=== PATIENT | female | born 1930 | race Caucasian/White ===

== ENCOUNTER → 2017-02-07 | Outpatient (CLI) | payer MEDICARE, OTHER ==
[~2017-02-07] MED LIST: ADVA250A INH; ADVAI250I PO; CARV6.25 PO; FLUT50SP EACH NARE; FURO1TAB60 PO; FURO20 PO; FURO20TA PO; FURO40TA PO; KCL10C PO; LISI-357 PO; LISI-515 PO; LISI-519 PO; METO25TA3 PO; METO50CR PO; POTA-163 PO; POTA10TA2 PO
[2017-02-07 13:31] LABS: AUTOMATED NEUTROPHIL # 2.5 TH/MM3 (1.8-7.7); BASOPHIL # 0.1 TH/MM3 (0-0.2); BASOPHIL % 3.8 % (0.0-2.0); EOSINOPHIL % 0.9 % (0.0-4.0); HEMATOCRIT 44.2 % (35.0-46.0); LYMPH % 15.3 % (9.0-44.0); LYMPHOCYTE # 0.5 TH/MM3 (1.0-4.8); MEAN CELL VOLUME 97.9 FL (80.0-100.0); MEAN CORPUSCULAR HEMOGLOBIN 31.8 PG (27.0-34.0); MEAN CORPUSCULAR HGB CONC 32.5 % (32.0-36.0); MONO % 10.1 % (0.0-8.0); NEUT % 69.9 % (16.0-70.0); PLATELET COUNT 86 TH/MM3 (150-450); RED BLOOD COUNT 4.51 MIL/MM3 (4.00-5.30); RED CELL DISTRIBUTION WIDTH 14.4 % (11.6-17.2); WHITE BLOOD COUNT 3.6 TH/MM3 (4.0-11.0)
[2017-02-07 13:44] LABS: HEMO FLAGS AUTO DIFF
[2017-02-07 13:58] LABS: ALT (GPT) 22 U/L (10-53); ANION GAP 8 MEQ/L (5-15); AST (GOT) 20 U/L (15-37); BICARBONATE 31.8 MEQ/L (21.0-32.0); BLOOD UREA NITROGEN 31 MG/DL (7-18); CHLORIDE 100 MEQ/L (98-107); GLOMERULAR FILTRATION RATE 47 ML/MIN (>89); GLUCOSE,FASTING 72 MG/DL (74-99); SODIUM (NA) 140 MEQ/L (136-145)
[2017-02-07 14:00] LABS: ALKALINE PHOSPHATASE 54 U/L (45-117); TOTAL BILIRUBIN ADULT 1.1 MG/DL (0.2-1.0)
[2017-02-07 14:31] LABS: PLATELET ESTIMATE SMEAR LOW (NORMAL); PLATELET MORPHOLOGY NORMAL (NORMAL); SCAN/DIFF AUTO DIFF CONFIRMED
== END ==
LOC: PLAB 08-10 10:07
PROVIDERS: ATTEND Family Medicine
DX: R60.0 Localized edema (principal); I42.9 Cardiomyopathy, unspecified; Z51.81 Encounter for therapeutic drug level monitoring
CPT/HCPCS: 36415; 80053; 80061; 83721; 85025

== ENCOUNTER 2017-03-28 11:52 | Emergency (ER) | payer MEDICARE, OTHER ==
[~2017-03-28] VITALS: Ht 162.6 cm; Wt 61.0 kg
[~2017-03-28 11:52] MED LIST changes: -ADVA250A INH; -CARV6.25 PO; -FLUT50SP EACH NARE; -FURO1TAB60 PO; -FURO20TA PO; -FURO40TA PO; -LISI-515 PO; -LISI-519 PO; -METO25TA3 PO; -POTA-163 PO; -POTA10TA2 PO
[2017-03-28 11:58] VITALS: BP 124/65; PULSE 78; RESP 16; TEMP 97.3; O2SAT 97
[2017-03-28] MEDS ORDERED: FURO20TA PO (12:24)
[2017-03-28] MEDS ORDERED: FLUT50SP EACH NARE (12:24)
[2017-03-28] MEDS ORDERED: LISI-515 PO (12:24)
[2017-03-28] MEDS ORDERED: METO25TA3 PO (12:24)
[2017-03-28] MEDS ORDERED: ADVA250A INH (12:24)
[2017-03-28] MEDS ORDERED: POTA10TA2 PO (12:24)
[2017-03-28 12:48] LABS: AUTOMATED NEUTROPHIL # 3.5 TH/MM3 (1.8-7.7); BASOPHIL # 0.1 TH/MM3 (0-0.2); BASOPHIL % 3.2 % (0.0-2.0); LYMPH % 11.6 % (9.0-44.0); LYMPHOCYTE # 0.5 TH/MM3 (1.0-4.8); MEAN CELL VOLUME 98.1 FL (80.0-100.0); MEAN CORPUSCULAR HEMOGLOBIN 32.4 PG (27.0-34.0); MEAN CORPUSCULAR HGB CONC 33.1 % (32.0-36.0); MONO % 8.8 % (0.0-8.0); NEUT % 75.4 % (16.0-70.0); PLATELET COUNT 83 TH/MM3 (150-450); RED BLOOD COUNT 4.29 MIL/MM3 (4.00-5.30); RED CELL DISTRIBUTION WIDTH 14.1 % (11.6-17.2); WHITE BLOOD COUNT 4.5 TH/MM3 (4.0-11.0)
[2017-03-28 12:53] LABS: HEMO FLAGS AUTO DIFF
[2017-03-28 12:58] LABS: POTASSIUM 4.4 MEQ/L (3.5-5.1)
[2017-03-28 13:01] LABS: BICARBONATE 32.3 MEQ/L (21.0-32.0)
--- NOTE | 2017-03-28 13:12 | PD ---
HPI Chief Complaint: Skin Problem Time Seen by Provider: 12:05 Travel History International Travel<30 days: No Contact w/Intl Traveler<30days: No Traveled to known affect area: No History of Present Illness HPI 86 F c/o bilat LE edema for years. She has had drainage from the posterior lower legs for weeks. Dressing changes at [place] have conferred minimal benefit. No fever/chills. No marked pain in the legs. no hx DVT. Drainage has been constant, soaking through dressing daily. Timing constant. PFSH Past Medical History Asthma: No Blood Disorders: No Anxiety: Yes Depression: No Heart Rhythm Problems: No Cancer: Yes (breast) Cardiovascular Problems: Yes (Aortic aneurysm repair, "LEAKY VALVE") High Cholesterol: Yes Chemotherapy: No Chest Pain: No Congestive Heart Failure: Yes COPD: Yes Coronary Artery Disease: Yes Diabetes: No Diminished Hearing: No Endocrine: No Gastrointestinal Disorders: No Genitourinary: No Hypertension: Yes Immune Disorder: No Implanted Vascular Access Dvce: No Musculoskeletal: Yes (FIBROMYALGIA) Neurologic: No Psychiatric: No Reproductive: No Respiratory: Yes (copd) Immunizations Current: Yes Radiation Therapy: Yes Sleep Apnea: No Thyroid Disease: No Past Surgical History Appendectomy: Yes Cardiac Surgery: Yes (STATES AAA REPAIR AT [facility]) Coronary Stent: Yes Gynecologic Surgery: Yes ( LUMPECTOMY) Hysterectomy: Yes Oral Surgery: Yes (TONSILLECTOMY) Tonsillectomy: Yes Other Surgery: Yes (right lumpectomy) Social History Alcohol Use: No Tobacco Use: No Substance Use: No Allergies-Medications (Allergen,Severity, Reaction): Coded Allergies: Sulfa (Verified Allergy, Unknown, LIGHTHEADED, 03/28/17) Reported Meds & Prescriptions Reported Meds & Active Scripts Active Reported Fluticasone Nasal [place] 50 Mcg/Act Naspr 50 Mcg EACH NARE BID 50 mcg/spray Metoprolol Tartrate 25 Mg Tab 25 Mg PO BID Lisinopril 20 Mg Tab 20 Mg PO DAILY Potassium Chloride ER (Potassium Chloride) 10 Meq Tab 10 Meq PO DAILY Furosemide 20 Mg Tab 20 Mg PO DAILY Advair Diskus Inh (Fluticasone-Salmeterol Inh) 250-50 Mcg/Blist Aer 1 Puff INH BID Rinse mouth after use. Review of Systems Except as stated in HPI: all other systems reviewed are Neg Physical Exam Narrative GENERAL: 86 yo F, WNWD, pleasant SKIN: Warm and dry. Generalized erythema from the knees distally bilaterally. Wound dressings are saturated with serous discharge. Minimal foul odor. Posterior R leg has an area of ulceration and minimal bleeding. 2+ DP bilaterally. Varicosities present throughout. HEAD: Atraumatic. Normocephalic. EYES: Pupils equal and round. No scleral icterus. No injection or drainage. ENT: No nasal bleeding or discharge. Mucous membranes pink and moist. NECK: Trachea midline. No JVD. CARDIOVASCULAR: Regular rate and rhythm. RESPIRATORY: No accessory muscle use. Clear to auscultation. Breath sounds equal bilaterally. GASTROINTESTINAL: Abdomen soft, non-tender, nondistended. Hepatic and splenic margins not palpable. MUSCULOSKELETAL: Extremities without clubbing, cyanosis, or edema. No obvious deformities. NEUROLOGICAL: Awake and alert. No obvious cranial nerve deficits. Motor grossly within normal limits. Five out of 5 muscle strength in the arms and legs. Normal speech. PSYCHIATRIC: Appropriate mood and affect; insight and judgment normal. Data Data Last Documented VS Vital Signs Date Time Temp Pulse Resp B/P Pulse Ox O2 Delivery O2 Flow Rate FiO2 03/28/17 11:58 97.3 78 16 124/65 97 VS reviewed Orders Basic Metabolic Panel (Bmp) (03/28/17 12:25) Complete Blood Count With Diff (03/28/17 12:25) Wound Culture And Gram Stain (03/28/17 12:25) Iv Access Insert/Monitor (03/28/17 12:25) Wound Care (03/28/17 12:25) Labs Laboratory Tests Test 03/28/17 12:41 White Blood Count 4.5 TH/MM3 Red Blood Count 4.29 MIL/MM3 Hemoglobin 13.9 GM/DL Hematocrit 42.0 % Mean Corpuscular Volume 98.1 FL Mean Corpuscular Hemoglobin 32.4 PG Mean Corpuscular Hemoglobin 33.1 % Concent Red Cell Distribution Width 14.1 % Platelet Count 83 TH/MM3 Mean Platelet Volume 7.7 FL Neutrophils (%) (Auto) 75.4 % Lymphocytes (%) (Auto) 11.6 % Monocytes (%) (Auto) 8.8 % Eosinophils (%) (Auto) 1.0 % Basophils (%) (Auto) 3.2 % Neutrophils # (Auto) 3.5 TH/MM3 Lymphocytes # (Auto) 0.5 TH/MM3 Monocytes # (Auto) 0.4 TH/MM3 Eosinophils # (Auto) 0.0 TH/MM3 Basophils # (Auto) 0.1 TH/MM3 CBC Comment AUTO DIFF Differential Comment AUTO DIFF CONFIRMED Platelet Estimate LOW Platelet Morphology Comment NORMAL Sodium Level 142 MEQ/L Potassium Level 4.4 MEQ/L Chloride Level 104 MEQ/L Carbon Dioxide Level 32.3 MEQ/L Anion Gap 6 MEQ/L Blood Urea Nitrogen 41 MG/DL Creatinine 1.10 MG/DL Estimat Glomerular Filtration 47 ML/MIN Rate Random Glucose 92 MG/DL Calcium Level 8.8 MG/DL MDM Medical Decision Making Medical Screen Exam Complete: Yes Emergency Medical Condition: Yes Medical Record Reviewed: Yes Differential Diagnosis Venous stasis, cellulitis, lymphedema, necrotizing fasciitis, DVT Narrative Course CBC & BMP Diagram 03/28/17 12:41 No evidence of infection. The patient benefit from Unna's Boots to be applied and replaced every 2 weeks. We have arranged through this with our case management services in coordination with Dr. Dos Santos's service. The visiting nurse will apply the Unna's boots. Patient informed of and is agreeable with plan. Diagnosis Primary Impression: Bilateral lower extremity edema Referrals: Edouard Dos Santos MD 2 days Additional Instructions: You have a choice when it comes to health care, and we are glad that you chose [email or web address]. Hopefully, we have met your expectations on today's visit. You are welcome to return to [email or web address] at any time, as we are committed to meeting the health care needs of our community. Med/Other Pt SpecificInfo: Prescription(s) given Disposition: 01 DISCHARGE HOME Condition: Stable Félix Silveira MD March 28, 2017 13:12
--- NOTE | 2017-03-28 13:13 | PD ---
HPI Chief Complaint: Skin Problem Time Seen by Provider: 12:05 Travel History International Travel<30 days: No Contact w/Intl Traveler<30days: No Traveled to known affect area: No History of Present Illness HPI This report is in ERROR Please disregard this report and all prior copies ! This report is in ERROR Please disregard this report and all prior copies ! This report is in ERROR Please disregard this report and all prior copies ! PFSH Past Medical History Asthma: No Blood Disorders: No Anxiety: Yes Depression: No Heart Rhythm Problems: No Cancer: Yes (breast) Cardiovascular Problems: Yes (Aortic aneurysm repair, "LEAKY VALVE") High Cholesterol: Yes Chemotherapy: No Chest Pain: No Congestive Heart Failure: Yes COPD: Yes Coronary Artery Disease: Yes Diabetes: No Diminished Hearing: No Endocrine: No Gastrointestinal Disorders: No Genitourinary: No Hypertension: Yes Immune Disorder: No Implanted Vascular Access Dvce: No Musculoskeletal: Yes (FIBROMYALGIA) Neurologic: No Psychiatric: No Reproductive: No Respiratory: Yes (copd) Immunizations Current: Yes Radiation Therapy: Yes Sleep Apnea: No Thyroid Disease: No Past Surgical History Appendectomy: Yes Cardiac Surgery: Yes (STATES AAA REPAIR AT [facility]) Coronary Stent: Yes Gynecologic Surgery: Yes ( LUMPECTOMY) Hysterectomy: Yes Oral Surgery: Yes (TONSILLECTOMY) Tonsillectomy: Yes Other Surgery: Yes (right lumpectomy) Social History Alcohol Use: No Tobacco Use: No Substance Use: No Allergies-Medications (Allergen,Severity, Reaction): Coded Allergies: Sulfa (Verified Allergy, Unknown, LIGHTHEADED, 03/28/17) Reported Meds & Prescriptions Reported Meds & Active Scripts Active Reported Fluticasone Nasal [place] 50 Mcg/Act Naspr 50 Mcg EACH NARE BID 50 mcg/spray Metoprolol Tartrate 25 Mg Tab 25 Mg PO BID Lisinopril 20 Mg Tab 20 Mg PO DAILY Potassium Chloride ER (Potassium Chloride) 10 Meq Tab 10 Meq PO DAILY Furosemide 20 Mg Tab 20 Mg PO DAILY Advair Diskus Inh (Fluticasone-Salmeterol Inh) 250-50 Mcg/Blist Aer 1 Puff INH BID Rinse mouth after use. Physical Exam Narrative This report is in ERROR Please disregard this report and all prior copies ! This report is in ERROR Please disregard this report and all prior copies ! This report is in ERROR Please disregard this report and all prior copies ! Data Data Last Documented VS Vital Signs Date Time Temp Pulse Resp B/P Pulse Ox O2 Delivery O2 Flow Rate FiO2 03/28/17 11:58 97.3 78 16 124/65 97 Orders Basic Metabolic Panel (Bmp) (03/28/17 12:25) Complete Blood Count With Diff (03/28/17 12:25) Wound Culture And Gram Stain (03/28/17 12:25) Iv Access Insert/Monitor (03/28/17 12:25) Wound Care (03/28/17 12:25) Labs Laboratory Tests Test 03/28/17 12:41 White Blood Count 4.5 TH/MM3 Red Blood Count 4.29 MIL/MM3 Hemoglobin 13.9 GM/DL Hematocrit 42.0 % Mean Corpuscular Volume 98.1 FL Mean Corpuscular Hemoglobin 32.4 PG Mean Corpuscular Hemoglobin 33.1 % Concent Red Cell Distribution Width 14.1 % Platelet Count 83 TH/MM3 Mean Platelet Volume 7.7 FL Neutrophils (%) (Auto) 75.4 % Lymphocytes (%) (Auto) 11.6 % Monocytes (%) (Auto) 8.8 % Eosinophils (%) (Auto) 1.0 % Basophils (%) (Auto) 3.2 % Neutrophils # (Auto) 3.5 TH/MM3 Lymphocytes # (Auto) 0.5 TH/MM3 Monocytes # (Auto) 0.4 TH/MM3 Eosinophils # (Auto) 0.0 TH/MM3 Basophils # (Auto) 0.1 TH/MM3 CBC Comment AUTO DIFF Differential Comment AUTO DIFF CONFIRMED Platelet Estimate LOW Platelet Morphology Comment NORMAL Sodium Level 142 MEQ/L Potassium Level 4.4 MEQ/L Chloride Level 104 MEQ/L Carbon Dioxide Level 32.3 MEQ/L Anion Gap 6 MEQ/L Blood Urea Nitrogen 41 MG/DL Creatinine 1.10 MG/DL Estimat Glomerular Filtration 47 ML/MIN Rate Random Glucose 92 MG/DL Calcium Level 8.8 MG/DL MDM Medical Decision Making Medical Screen Exam Complete: Yes Emergency Medical Condition: Yes Differential Diagnosis This report is in ERROR Please disregard this report and all prior copies ! This report is in ERROR Please disregard this report and all prior copies ! This report is in ERROR Please disregard this report and all prior copies ! Narrative Course This report is in ERROR Please disregard this report and all prior copies ! This report is in ERROR Please disregard this report and all prior copies ! This report is in ERROR Please disregard this report and all prior copies ! Félix Silveira MD March 28, 2017 13:13
[2017-03-28 13:25] LABS: PLATELET ESTIMATE SMEAR LOW (NORMAL); PLATELET MORPHOLOGY NORMAL (NORMAL); SCAN/DIFF AUTO DIFF CONFIRMED
[2017-04-22] MEDS ORDERED: POTA-163 PO (14:11)
[2017-04-22] MEDS ORDERED: LISI-519 PO (14:13)
== END 2017-03-28 14:18 | disposition home or self-care (01) ==
LOC: PHED 11:52
DX: R60.0 Localized edema (principal); L97.919 Non-pressure chronic ulcer of unspecified part of right lower leg with unspecified severity; I83.91 Asymptomatic varicose veins of right lower extremity; I50.9 Heart failure, unspecified; J44.9 Chronic obstructive pulmonary disease, unspecified; I25.10 Atherosclerotic heart disease of native coronary artery without angina pectoris; I10 Essential (primary) hypertension; M79.7 Fibromyalgia; F41.9 Anxiety disorder, unspecified
CPT/HCPCS: 80048; 85025; 86403; 87070; 87077; 87186; 99283

== ENCOUNTER 2017-04-05 15:33 | Emergency (ER) | payer MEDICARE, OTHER ==
[~2017-04-05] VITALS: Ht 162.6 cm; Wt 64.0 kg
[~2017-04-05 15:33] MED LIST changes: +ADVA250A INH; -ADVAI250I PO; +FLUT50SP EACH NARE; -FURO20 PO; +FURO20TA PO; -KCL10C PO; -LISI-357 PO; +LISI-515 PO; +METO25TA3 PO; -METO50CR PO; +POTA10TA2 PO
[2017-04-05 15:49] VITALS: BP 109/71; PULSE 69; RESP 16; TEMP 97.5; O2SAT 96
--- NOTE | 2017-04-05 16:21 | PD ---
HPI Chief Complaint: Complaint Time Seen by Provider: 16:09 Travel History International Travel<30 days: No Contact w/Intl Traveler<30days: No Traveled to known affect area: No History of Present Illness HPI This is an 86-year-old female who has a history of lower extremity edema and cardiomyopathy who presents to the emergency department with difficulty urinating over the past 48 hours. She says yesterday morning she took her Lasix as she normally does and she only urinated a couple of times and she felt like she was dribbling but she was urinating much less than she normally does. This concerned her so she went to see Dr. Rhodes today. She decided not to take her Lasix this morning. She denies any fevers, chills, abdominal pain, vomiting, urgency or frequency. The patient recently was seen in the emergency department for lower extremity edema and Unna boots were placed and Dr. Rhodes has been trying to diurese her in the outpatient setting. She doesn't feel like her legs are getting any better. PFSH Past Medical History Hx Anticoagulant Therapy: No Asthma: No Blood Disorders: No Anxiety: Yes Depression: No Heart Rhythm Problems: No Cancer: Yes (breast) Cardiovascular Problems: Yes (Aortic aneurysm repair, "LEAKY VALVE") High Cholesterol: Yes Chemotherapy: No Chest Pain: No Congestive Heart Failure: Yes COPD: Yes Coronary Artery Disease: Yes Diabetes: No Diminished Hearing: No Endocrine: No Gastrointestinal Disorders: No Genitourinary: No Hypertension: Yes Immune Disorder: No Implanted Vascular Access Dvce: No Musculoskeletal: Yes (FIBROMYALGIA) Neurologic: No Psychiatric: No Reproductive: No Respiratory: Yes (copd) Immunizations Current: Yes Radiation Therapy: Yes Sleep Apnea: No Thyroid Disease: No Tetanus Vaccination: Unknown Influenza Vaccination: No ?: Not Menopausal: Yes Past Surgical History Appendectomy: Yes Cardiac Surgery: Yes (STATES AAA REPAIR AT [facility]) Coronary Stent: Yes Gynecologic Surgery: Yes ( LUMPECTOMY) Hysterectomy: Yes Oral Surgery: Yes (TONSILLECTOMY) Tonsillectomy: Yes Other Surgery: Yes (right lumpectomy) Social History Alcohol Use: Yes (Occ.) Tobacco Use: No Substance Use: No Allergies-Medications (Allergen,Severity, Reaction): Coded Allergies: Sulfa (Verified Allergy, Unknown, LIGHTHEADED, 04/05/17) Reported Meds & Prescriptions Reported Meds & Active Scripts Active Reported Fluticasone Nasal [place] 50 Mcg/Act Naspr 50 Mcg EACH NARE BID 50 mcg/spray Metoprolol Tartrate 25 Mg Tab 25 Mg PO BID Lisinopril 20 Mg Tab 20 Mg PO DAILY Potassium Chloride ER (Potassium Chloride) 10 Meq Tab 10 Meq PO DAILY Furosemide 20 Mg Tab 20 Mg PO DAILY Advair Diskus Inh (Fluticasone-Salmeterol Inh) 250-50 Mcg/Blist Aer 1 Puff INH BID Rinse mouth after use. Review of Systems Except as stated in HPI: all other systems reviewed are Neg Physical Exam Narrative GENERAL:Well appearing, no acute distress SKIN: Focused skin assessment warm and dry. HEAD: Atraumatic. Normocephalic. EYES: Pupils equal and round. No injection or drainage. ENT: Moist mucous membranes NECK: Trachea midline. CARDIOVASCULAR: Regular rate and rhythm. No murmur appreciated. RESPIRATORY: Clear to auscultation. Breath sounds equal bilaterally. GASTROINTESTINAL: Abdomen soft, non-tender, nondistended. MUSCULOSKELETAL: Unna boots in place on both lower extremities. NEUROLOGICAL: Awake and alert. No obvious cranial nerve deficits. Moving all extremities. PSYCHIATRIC: Appropriate mood and affect; insight and judgment normal. Data Data Last Documented VS Vital Signs Date Time Temp Pulse Resp B/P Pulse Ox O2 Delivery O2 Flow Rate FiO2 04/05/17 15:49 97.5 69 16 109/71 96 Orders Complete Blood Count With Diff (04/05/17 16:16) Comprehensive Metabolic Panel (04/05/17 16:16) ^ Insert Iv (04/05/17 16:16) B-Type Natriuretic Peptide (04/05/17 16:16) Urinalysis - C+S If Indicated (04/05/17 16:16) Labs Laboratory Tests Test 04/05/17 16:30 White Blood Count 5.0 TH/MM3 Red Blood Count 4.89 MIL/MM3 Hemoglobin 15.4 GM/DL Hematocrit 48.2 % Mean Corpuscular Volume 98.4 FL Mean Corpuscular Hemoglobin 31.5 PG Mean Corpuscular Hemoglobin 32.0 % Concent Red Cell Distribution Width 15.0 % Platelet Count 100 TH/MM3 Mean Platelet Volume 8.2 FL Neutrophils (%) (Auto) 79.1 % Lymphocytes (%) (Auto) 12.1 % Monocytes (%) (Auto) 6.7 % Eosinophils (%) (Auto) 0.5 % Basophils (%) (Auto) 1.6 % Neutrophils # (Auto) 4.0 TH/MM3 Lymphocytes # (Auto) 0.6 TH/MM3 Monocytes # (Auto) 0.3 TH/MM3 Eosinophils # (Auto) 0.0 TH/MM3 Basophils # (Auto) 0.1 TH/MM3 CBC Comment AUTO DIFF Urine Color YELLOW Urine Turbidity CLEAR Urine pH 5.5 Urine Specific [place] 1.020 Urine Protein 30 mg/dL Urine Glucose (UA) NEG mg/dL Urine Ketones NEG mg/dL Urine Occult Blood MOD Urine Nitrite NEG Urine Bilirubin NEG Urine Leukocyte Esterase NEG Urine RBC 0-3 /hpf Urine WBC 3-5 /hpf Urine Squamous Epithelial 0-5 /hpf Cells Urine Mucus MOD /lpf Microscopic Urinalysis Comment CULT NOT INDICATED Sodium Level 140 MEQ/L Potassium Level 4.4 MEQ/L Chloride Level 102 MEQ/L Carbon Dioxide Level 28.7 MEQ/L Anion Gap 9 MEQ/L Blood Urea Nitrogen 37 MG/DL Creatinine 1.10 MG/DL Estimat Glomerular Filtration 47 ML/MIN Rate Random Glucose 80 MG/DL Calcium Level 8.7 MG/DL Total Bilirubin 0.9 MG/DL Aspartate Amino Transf 23 U/L (AST/SGOT) Alanine Aminotransferase 21 U/L (ALT/SGPT) Alkaline Phosphatase 60 U/L B-Type Natriuretic Peptide 4551 PG/ML Total Protein 6.2 GM/DL Albumin 3.1 GM/DL MDM Medical Decision Making Medical Screen Exam Complete: Yes Emergency Medical Condition: Yes Interpretation(s) Afebrile, no tachycardia, normotensive No leukocytosis Creatinine is similar to prior BNP is elevated as it's been in the past Urinalysis is negative for infection Differential Diagnosis Urinary tract infection, acute urinary retention, renal failure Narrative Course This is an 86-year-old female who presents to the emergency department with decreased urine output over the past 48 hours. She has no evidence of urinary retention and place void residual was 10 cc. Labs are reassuring with creatinine at her baseline. Urinalysis is negative for infection. I don't see any indication for the patient to be admitted to the hospital. Patient will be discharged home and can follow-up with Dr. Rhodes in clinic. Diagnosis Primary Impression: Urinary hesitancy Patient Instructions: General Instructions Additional Instructions: If you develop severe chest pain, shortness of breath, sweating, lightheadedness , dizziness or difficulty breathing return to the emergency department immediately. Followup with your primary care physician in 2-3 days if your symptoms are not resolved. Med/Other Pt SpecificInfo: No Change to Meds Disposition: 01 DISCHARGE HOME Condition: Stable Marly Rivera MD April 05, 2017 16:21
[2017-04-05 16:51] LABS: GLUCOSE,URINE NEG (NEG); KETONE, URINE NEG (NEG); NITRITE,URINE NEG (NEG); PH, URINE 5.5 (5.0-8.5)
[2017-04-05 16:55] LABS: CHLORIDE 102 MEQ/L (98-107); POTASSIUM 4.4 MEQ/L (3.5-5.1); SODIUM (NA) 140 MEQ/L (136-145)
[2017-04-05 16:59] LABS: ANION GAP 9 MEQ/L (5-15); BICARBONATE 28.7 MEQ/L (21.0-32.0); BLOOD UREA NITROGEN 37 MG/DL (7-18)
[2017-04-05 17:00] LABS: BLOOD, URINE MOD (NEG); URINE COLOR YELLOW (YELLW/STRAW)
[2017-04-05 17:01] LABS: MUCUS URINE MOD /lpf (OCC)
[2017-04-05 17:02] LABS: ALT (GPT) 21 U/L (10-53); AST (GOT) 23 U/L (15-37); COMMENT (UR) CULT NOT INDICATED; CULTURE IF INDICATED CULT NOT INDICATED; GLOMERULAR FILTRATION RATE 47 ML/MIN (>89); RBC, URINE 0-3 /hpf (0-3); SQUAMOUS EPITHELIAL CELL URINE 0-5 /hpf (0-5)
[2017-04-05 17:04] LABS: BASOPHIL # 0.1 TH/MM3 (0-0.2); BASOPHIL % 1.6 % (0.0-2.0); EOSINOPHIL % 0.5 % (0.0-4.0); HEMATOCRIT 48.2 % (35.0-46.0); LYMPH % 12.1 % (9.0-44.0); LYMPHOCYTE # 0.6 TH/MM3 (1.0-4.8); MEAN CELL VOLUME 98.4 FL (80.0-100.0); MEAN CORPUSCULAR HEMOGLOBIN 31.5 PG (27.0-34.0); MONO % 6.7 % (0.0-8.0); NEUT % 79.1 % (16.0-70.0); PLATELET COUNT 100 TH/MM3 (150-450); RED BLOOD COUNT 4.89 MIL/MM3 (4.00-5.30); TOTAL BILIRUBIN ADULT 0.9 MG/DL (0.2-1.0)
[2017-04-05 17:05] LABS: ALKALINE PHOSPHATASE 60 U/L (45-117)
[2017-04-05 17:15] LABS: HEMO FLAGS AUTO DIFF
[2017-04-05] MEDS ORDERED: FUROSEMIDE 20 MG/2 ML VIAL IV PUSH ONE (18:00)
[2017-04-05 18:20] VITALS: BP 130/89; PULSE 88; RESP 16; O2SAT 95
[2017-04-05 18:46] LABS: SCAN/DIFF AUTO DIFF CONFIRMED
== END 2017-04-05 18:30 | disposition home or self-care (01) ==
LOC: PHED 15:33
DX: R39.11 Hesitancy of micturition (principal); F41.9 Anxiety disorder, unspecified; E78.00 Pure hypercholesterolemia, unspecified; I50.9 Heart failure, unspecified; J44.9 Chronic obstructive pulmonary disease, unspecified; I25.10 Atherosclerotic heart disease of native coronary artery without angina pectoris; I10 Essential (primary) hypertension; M79.7 Fibromyalgia; Z79.899 Other long term (current) drug therapy
CPT/HCPCS: 51702; 80053; 81001; 83880; 85025; 96374; 99284; J1940

== ENCOUNTER 2017-04-22 10:39 | Observation (INO) | payer MEDICARE, OTHER ==
[~2017-04-22] VITALS: Ht 162.6 cm; Wt 61.1 kg
[2017-04-22 13:40] VITALS: BP 124/71; PULSE 91; RESP 20; TEMP 97.4; O2SAT 90
[2017-04-22] MEDS ORDERED: POTA-163 PO ×2 (14:11)
[2017-04-22] MEDS ORDERED: LISI-519 PO ×2 (14:13)
[2017-04-22] MEDS ORDERED: METO25TA3 PO (14:23)
[2017-04-22] MEDS ORDERED: FURO40TA PO (14:25)
--- NOTE | 2017-04-22 15:09 | HHI.HP ---
[facility] Edouard Dos Santos MD Admission Diagnosis Diagnoses: Chief Complaint: Direct admit by cardiology due to worsening CHF Travel History International Travel<30 Days: No Contact w/Intl Traveler <30 Da: No History of Present Illness 86 years old female with history of advanced CHF and stage I breast cancer diagnosed in 2005, coronary artery disease, chronic lower extremity edema and wound, osteopenia osteoporosis, thoracic aneurysm transferred directly to the hospital as a direct admit. I received a call this morning from Dr. francis the process consultant requesting direct admit due to possible worsening CHF. Patient seen in the room she was laying in bed on oxygen nasal cannula she seems to be stable on oxygen. She told me she is on oxygen at home but only at night however within the last 2 days her dyspnea become more progressive and worsening she can do further movement without getting short of breath, no chest pain fever or chills, no abdominal pain diarrhea constipation dysuria urgency frequency Review of Systems All systems reviewed and was positive for what is mentioned in history of present illness otherwise negative Past Family Social History Past Medical History As in history of present illness Past Surgical History Appendectomy, hysterectomy, thoracic aneurysm repair, tonsillectomy, lumpectomy in 2005 Allergies: Coded Allergies: Sulfa (Verified Allergy, Unknown, LIGHTHEADED, 04/05/17) Family History Not aware of significant family medical problem Social History Denied tobacco alcohol or illicit drug abuse Physical Exam Physical Exam GENERAL: This is a well-nourished, well-developed patient, in no apparent distress. SKIN: No rashes, warm and dry HEAD: Atraumatic. Normocephalic. EYES: Pupils equal round and reactive. Extraocular motions intact. No scleral icterus. ENT: Nose without bleeding, or drainage, Airway patent. NECK: Trachea midline. Supple CARDIOVASCULAR: Regular rate and rhythm without murmurs, gallops, or rubs. RESPIRATORY: Fair air entry bilaterally. No wheezes, rales, or rhonchi. GASTROINTESTINAL: Abdomen soft, non-tender, nondistended. Positive bowel sounds MUSCULOSKELETAL: Extremities without clubbing, cyanosis, or edema. Pedal pulses appreciated NEUROLOGICAL: Awake and alert. Moves all extremity. Normal speech.no focal neurological deficit Laboratory No lab available yet I ordered basic lab BMP, BNP, CBC Imaging Last Impressions Chest X-Ray 04/22/17 0000 Signed Impressions: Service Date/Time: Saturday, April 22, 2017 15:20 - CONCLUSION: 1. Massive cardiomegaly. 2. Thoracic stent graft. 3. No overt congestive failure. 4. Surgical clips in the right axilla. Jeffery Sue MD FACR Assessment and Plan Assessment and Plan 86 years old female with history of advanced CHF and valvulopathy, breast cancer admitted directly to hospitalist service per request of her process consultant Hypoxia and increased need of oxygen dyspnea on exertion Rule out CHF exacerbation CBC BMP, BNP, chest x-ray We'll give a dose of Lasix 40 mg iv Consulted cardiology and discussed with Dr. francis O2 to keep O2 sat above 92% 2-D echo from June 2016 showed EF 20-25%, severe MR , AR, severely dilated left at p.m., and pulmonary pressure is 44 mmgh, will defer repeating 2-D echo for process consultant History of COPD per previous record: Patient denied history of smoking Continue O2, we'll provide DuoNeb No significant wheezes H/O Hypertension A pressure controlled now we'll monitor, Vasotec as needed Lower extremity wound and edema She came with wrap compression, I removed it and inspected the left leg there was some bleeding wound we consulted wound care, I recommended to decrease libido pressure on the leg and rewrap it Awaiting wound care recommendation Prophylaxis with SCD and heparin Addendum: 651 Lab reviewed by me, BNP above 5000, creatinine 1.22 comparing to 1.10 last month , will continue on Lasix iv, awaiting cardiology consultation Mckenzie Weldon MD Apr 22, 2017 15:09
[2017-04-22] MEDS ORDERED: NALOXONE HCL 0.4 MG/ML AMP IV PRN (15:15)
[2017-04-22] MEDS ORDERED: ACETAMINOPHEN 325 MG TAB PO PRN (15:15)
[2017-04-22] MEDS ORDERED: SODIUM CHLORIDE 0.9% FLUSH 10 ML FLUSH IV FLUSH PRN (15:15)
[2017-04-22] MEDS ORDERED: MAGNESIUM HYDROXIDE SUSP 30 ML CUP PO PRN (15:15)
[2017-04-22] MEDS ORDERED: ONDANSETRON HCL 4 MG/2 ML VIAL IVP PRN (15:15)
[2017-04-22 16:00] VITALS: BP 120/87; PULSE 98; RESP 20; TEMP 97.3; O2SAT 98
--- NOTE | 2017-04-22 16:09 | RADRPT ---
EXAM DATE/TIME: 04/22/2017 15:20 [place] COMPARISON: CHEST SINGLE AP, August 29, 2016, 10:58. INDICATIONS : Pleural effusion. MEDICAL HISTORY : Chronic obstructive pulmonary disease. Congestive heart failure. Myocardial infarction. SURGICAL HISTORY : Abdominal aortic aneurysm ENCOUNTER: Initial ACUITY: 1 day PAIN SCORE: 0/10 LOCATION: Bilateral chest FINDINGS: Thoracic stent graft is present. The heart is enlarged. Minimal bibasilar parenchymal changes are n oted. There is no significant pleural effusion or consolidation. CONCLUSION: 1. Massive cardiomegaly. 2. Thoracic stent graft. 3. No overt congestive failure. 4. Surgical clips in the right axilla. Jeffery Sue MD FACR on April 22, 2017 at 16:06 Board Certified Radiologist. This report was verified electronically.
[2017-04-22] MEDS: FUROSEMIDE 40 MG/4 ML VIAL IVP SCH (17:07)
[2017-04-22] MEDS: HEPARIN SODIUM - SQ 10,000 UNITS/ML VIAL SQ SCH ×2 (17:07→23:33)
--- NOTE | 2017-04-22 17:32 | MB ---
cc: KENISHA FIERRO MD DATE OF CONSULTATION 04/22/17 HISTORY OF PRESENT ILLNESS An 86-year-old white female known to my practice with a history of nonischemic cardiomyopathy, an ejection fraction of 20-25%. She has had increased shortness of breath and lower extremity edema which was difficult to manage as outpatient. She also has had wounds of the lower extremities related to severe edema. She has not had any chest pain. She is admitted for the management of her congestive heart failure. PAST MEDICAL HISTORY 1. Nonischemic cardiomyopathy, PET scan on 04/28/2016 negative for ischemia. Echocardiogram on 06/30/2016 with ejection fraction of 20-25%. 2. History of intervention for thoracic aortic aneurysm, 3. Osteoporosis, 4. Breast cancer 5. Insomnia 6. Thoracic aortic aneurysm repair in 2016. 7. Last cardiac cath in 05/2011 with 20-30% stenosis of the RCA and an ejection fraction of 25% 8. Appendectomy 9. Hysterectomy 10. Lumpectomy MEDICATIONS 1. Metoprolol, 2. Lasix, 3. Klor-Con 4. Lisinopril 5. Fluticasone 6. Advair Discus SOCIAL HISTORY The patient does not smoke. She drinks alcohol socially. FAMILY HISTORY Positive for heart disease in mother, father and sibling. REVIEW OF SYSTEMS Otherwise negative. PHYSICAL EXAMINATION VITAL SIGNS: Blood pressure 102/60, pulse 95 and regular. HEENT: Negative. 2+ carotid upstrokes, no bruits. LUNGS: Clear. HEART: Irregular with 2/6 systolic and diastolic murmur, no gallop or rub. ABDOMEN: Soft, no bruits. EXTREMITIES: 2-3+ edema. There are wounds of both lower extremities. 1+ distal pulses. NEUROLOGIC: Grossly nonfocal. CARDIOLOGY STUDIES EKG was reviewed and showed sinus rhythm with frequent PVCs, left axis, left anterior fascicular block, delayed R-wave progression over precordial leads. The last echocardiogram in November of 2016 showed severe left ventricular dysfunction, moderate to severe aortic insufficiency, severe mitral insufficiency, moderate pulmonary hypertension and moderate tricuspid regurgitation. DIAGNOSES 1. Acute exacerbation of chronic systolic congestive heart failure. 2. Nonischemic cardiomyopathy with severe left ventricular systolic dysfunction. 4. Lower extremity edema. 5. Lower extremity wounds. 6. Coronary artery disease, mild 7. Moderate to severe aortic insufficiency. 8. Severe mitral regurgitation 9. Moderate pulmonary hypertension 10. Moderate tricuspid regurgitation. DISPOSITION Ms. David will be monitored on telemetry. We will initiate IV diuresis closely monitoring her renal function. We will continue other therapies for congestive heart failure. We will closely monitor her electrolytes. We will consult wound care service for the evaluation of her lower extremity wounds. I will follow her for cardiology during her hospitalization. MD TRACEY Reynolds/ /4:40 PM /5:16 PM CHAKA
[2017-04-22] MEDS ORDERED: RESP: ALBUTEROL 2.5 MG/IPRATROPIUM 0.5 MG NEB (PRN) NEB (17:45)
[2017-04-22] MEDS ORDERED: ENALAPRILAT 1.25 MG/ML VIAL IV PUSH PRN (17:45)
[2017-04-22 17:52] LABS: AUTOMATED NEUTROPHIL # 2.9 TH/MM3 (1.8-7.7); BASOPHIL % 0.8 % (0.0-2.0); EOSINOPHIL % 0.3 % (0.0-4.0); HEMATOCRIT 43.5 % (35.0-46.0); LYMPH % 16.9 % (9.0-44.0); LYMPHOCYTE # 0.7 TH/MM3 (1.0-4.8); MEAN CELL VOLUME 99.3 FL (80.0-100.0); MEAN CORPUSCULAR HEMOGLOBIN 31.7 PG (27.0-34.0); MEAN CORPUSCULAR HGB CONC 31.9 % (32.0-36.0); MONO % 9.1 % (0.0-8.0); NEUT % 72.9 % (16.0-70.0); PLATELET COUNT 62 TH/MM3 (150-450); RED BLOOD COUNT 4.38 MIL/MM3 (4.00-5.30); RED CELL DISTRIBUTION WIDTH 15.3 % (11.6-17.2); WHITE BLOOD COUNT 3.9 TH/MM3 (4.0-11.0)
[2017-04-22 18:03] LABS: HEMO FLAGS AUTO DIFF
[2017-04-22 18:15] LABS: BICARBONATE 34.5 MEQ/L (21.0-32.0); MAGNESIUM 2.7 MG/DL (1.5-2.5); POTASSIUM 4.6 MEQ/L (3.5-5.1)
[2017-04-22 18:53] LABS: PLATELET ESTIMATE SMEAR LOW (NORMAL); PLATELET MORPHOLOGY NORMAL (NORMAL); SCAN/DIFF AUTO DIFF CONFIRMED
[2017-04-22 19:45] VITALS: PULSE 81
[2017-04-22 20:00] VITALS: BP 118/67; PULSE 115; RESP 18; TEMP 97.5; O2SAT 92
[2017-04-22] MEDS: SODIUM CHLORIDE 0.9% FLUSH 10 ML FLUSH IV FLUSH SCH (20:33)
[2017-04-22] MEDS: DOCUSATE SODIUM 50 MG/SENNA 8.6 MG TAB PO SCH (20:33)
[2017-04-22 20:36] VITALS: O2SAT 97
[2017-04-22] MEDS: RESP: ALBUTEROL 2.5 MG/IPRATROPIUM 0.5 MG NEB (SCH) NEB (20:36)
--- NOTE | 2017-04-22 20:39 | PD.WCN.NOT ---
Wound Consult Description: Wound Care consulted for Wound Management of lower extremities per Dr Weldon. Communicated with: ROB Hernandez Recommendation: Every 5 days and PRN for saturation or dislodgement: Apply Optifoam AG to bilateral lower extremity wounds and secure with rolled gauze. Additional Information: Dr Weldon notified of recommendations. Shelbie Coulter [facility] Apr 22, 2017 20:39
[2017-04-22 23:57] LABS: BACTERIA, URINE RARE /hpf; BLOOD, URINE TRACE (NEG); COMMENT (UR) CULT NOT INDICATED; CULTURE IF INDICATED CULT NOT INDICATED; GLUCOSE,URINE NEG (NEG); HYALINE CAST, URINE 17 /lpf (RARE); KETONE, URINE NEG (NEG); NITRITE,URINE NEG (NEG); SQUAMOUS EPITHELIAL CELL URINE <1 /hpf (0-5); URINE COLOR YELLOW (YELLW/STRAW)
[2017-04-23] VITALS (7 sets, daily range): BP systolic 91–143; BP diastolic 62–80; PULSE 76–97; RESP 18–24; TEMP 97.1–97.8; O2SAT 94–97
[2017-04-23] MEDS: RESP: ALBUTEROL 2.5 MG/IPRATROPIUM 0.5 MG NEB (SCH) NEB ×4 (08:22→19:42)
[2017-04-23 09:27] LABS: AUTOMATED NEUTROPHIL # 2.2 TH/MM3 (1.8-7.7); BASOPHIL % 0.9 % (0.0-2.0); HEMATOCRIT 42.6 % (35.0-46.0); LYMPH % 20.8 % (9.0-44.0); LYMPHOCYTE # 0.7 TH/MM3 (1.0-4.8); MEAN CELL VOLUME 98.7 FL (80.0-100.0); MEAN CORPUSCULAR HEMOGLOBIN 32.7 PG (27.0-34.0); MEAN CORPUSCULAR HGB CONC 33.1 % (32.0-36.0); MONO % 9.6 % (0.0-8.0); NEUT % 67.7 % (16.0-70.0); PLATELET COUNT 72 TH/MM3 (150-450); RED BLOOD COUNT 4.31 MIL/MM3 (4.00-5.30); RED CELL DISTRIBUTION WIDTH 15.6 % (11.6-17.2); WHITE BLOOD COUNT 3.3 TH/MM3 (4.0-11.0)
[2017-04-23] MEDS: DOCUSATE SODIUM 50 MG/SENNA 8.6 MG TAB PO SCH ×2 (09:30→22:06)
[2017-04-23] MEDS: SODIUM CHLORIDE 0.9% FLUSH 10 ML FLUSH IV FLUSH SCH ×2 (09:31→22:07)
[2017-04-23] MEDS: HEPARIN SODIUM - SQ 10,000 UNITS/ML VIAL SQ SCH ×2 (09:31→16:23)
[2017-04-23] MEDS: FUROSEMIDE 40 MG/4 ML VIAL IVP SCH ×2 (09:31→18:03)
[2017-04-23 09:50] LABS: HEMO FLAGS AUTO DIFF
[2017-04-23 09:55] LABS: BICARBONATE 29.4 MEQ/L (21.0-32.0); POTASSIUM 4.3 MEQ/L (3.5-5.1)
[2017-04-23 11:13] LABS: OVALOCYTES 1+ (NORMAL); PLATELET ESTIMATE SMEAR LOW (NORMAL); PLATELET MORPHOLOGY NORMAL (NORMAL)
[2017-04-23 11:14] LABS: SCAN/DIFF AUTO DIFF CONFIRMED
--- NOTE | 2017-04-23 15:52 | PD.CARD.PN ---
Subjective Subjective Remarks No CP, minimal SOB, still w LE edema, not diuresing well yet Objective Medications Current Medications Medications (Trade) Dose Ordered Sig/Duncan Route Start Time Stop Time Status Last Admin (NS Flush) 2 ml UNSCH PRN IV FLUSH 04/22/17 15:15 (NS Flush) 2 ml BID IV FLUSH 04/22/17 21:00 04/23/17 09:31 (Tylenol) 650 mg Q4H PRN PO 04/22/17 15:15 (Zofran Inj) 4 mg Q6H PRN IVP 04/22/17 15:15 (Heparin Inj) 5,000 units Q8H SQ 04/22/17 16:00 04/23/17 09:31 (Narcan Inj) 0.4 mg UNSCH PRN IV 04/22/17 15:15 (Naya-Colace) 1 tab BID PO 04/22/17 21:00 04/23/17 09:30 (Milk Of Magnesia Liq) 30 ml Q12H PRN PO 04/22/17 15:15 (Lasix Inj) 40 mg BID@,18 IVP 04/22/17 18:00 04/23/17 09:31 (Vasotec Inj) 1.25 mg Q6H PRN IV PUSH 04/22/17 17:45 Vital Signs / I&O Vital Signs Date Time Temp Pulse Resp B/P Pulse Ox O2 Delivery O2 Flow Rate FiO2 04/23/17 15:28 95 Nasal Cannula 2.00 04/23/17 12:00 97.1 76 24 113/65 96 04/23/17 08:23 96 Nasal Cannula 2.00 04/23/17 08:00 97.1 97 24 120/80 97 04/23/17 00:00 97.6 94 18 110/75 96 04/22/17 20:36 97 Nasal Cannula 2.00 04/22/17 20:00 97.5 115 18 118/67 92 04/22/17 19:45 81 04/22/17 16:00 97.3 98 20 120/87 98 I/O 04/22/17 04/22/17 04/22/17 04/23/17 04/23/17 04/23/17 07:00 15:00 23:00 07:00 15:00 23:00 Intake Total 222 ml 100 ml Output Total 200 ml 300 ml Balance 22 ml -200 ml Intake Oral 220 ml 100 ml IV Total 2 ml Output Urine Total 200 ml 300 ml # Voids 1 # Bowel Movements 0 0 0 Physical Exam GENERAL: In NAD, on O2 SKIN: Warm and dry. HEAD: Normocephalic. EYES: No scleral icterus. No injection or drainage. NECK: Supple, trachea midline. No JVD or lymphadenopathy. CARDIOVASCULAR: Regular rate and rhythm with 2/6 syst and diast murmurs, S3 gallop. RESPIRATORY: Breath sounds equal bilaterally. No accessory muscle use. GASTROINTESTINAL: Abdomen soft, non-tender, nondistended. MUSCULOSKELETAL: No cyanosis, 2-3+ LE edema, LE wounds. Laboratory Laboratory Tests Test 04/22/17 04/22/17 04/23/17 17:22 23:20 07:21 White Blood Count 3.9 TH/MM3 3.3 TH/MM3 Red Blood Count 4.38 MIL/MM3 4.31 MIL/MM3 Hemoglobin 13.9 GM/DL 14.1 GM/DL Hematocrit 43.5 % 42.6 % Mean Corpuscular Volume 99.3 FL 98.7 FL Mean Corpuscular Hemoglobin 31.7 PG 32.7 PG Mean Corpuscular Hemoglobin 31.9 % 33.1 % Concent Red Cell Distribution Width 15.3 % 15.6 % Platelet Count 62 TH/MM3 72 TH/MM3 Mean Platelet Volume 9.2 FL 9.2 FL Neutrophils (%) (Auto) 72.9 % 67.7 % Lymphocytes (%) (Auto) 16.9 % 20.8 % Monocytes (%) (Auto) 9.1 % 9.6 % Eosinophils (%) (Auto) 0.3 % 1.0 % Basophils (%) (Auto) 0.8 % 0.9 % Neutrophils # (Auto) 2.9 TH/MM3 2.2 TH/MM3 Lymphocytes # (Auto) 0.7 TH/MM3 0.7 TH/MM3 Monocytes # (Auto) 0.4 TH/MM3 0.3 TH/MM3 Eosinophils # (Auto) 0.0 TH/MM3 0.0 TH/MM3 Basophils # (Auto) 0.0 TH/MM3 0.0 TH/MM3 CBC Comment AUTO DIFF AUTO DIFF Differential Comment AUTO DIFF AUTO DIFF CONFIRMED CONFIRMED Platelet Estimate LOW LOW Platelet Morphology Comment NORMAL NORMAL Sodium Level 145 MEQ/L 145 MEQ/L Potassium Level 4.6 MEQ/L 4.3 MEQ/L Chloride Level 105 MEQ/L 105 MEQ/L Carbon Dioxide Level 34.5 MEQ/L 29.4 MEQ/L Anion Gap 6 MEQ/L 11 MEQ/L Blood Urea Nitrogen 40 MG/DL 42 MG/DL Creatinine 1.22 MG/DL 1.22 MG/DL Estimat Glomerular Filtration 42 ML/MIN 42 ML/MIN Rate Random Glucose 84 MG/DL 72 MG/DL Calcium Level 8.7 MG/DL 8.5 MG/DL Phosphorus Level 4.0 MG/DL Magnesium Level 2.7 MG/DL B-Type Natriuretic Peptide GREATER THAN GREATER THAN 5000 PG/ML 5000 PG/ML Urine Color YELLOW Urine Turbidity CLEAR Urine pH 5.0 Urine Specific [place] 1.009 Urine Protein NEG mg/dL Urine Glucose (UA) NEG mg/dL Urine Ketones NEG mg/dL Urine Occult Blood TRACE Urine Nitrite NEG Urine Bilirubin NEG Urine Urobilinogen LESS THAN 2.0 MG/DL Urine Leukocyte Esterase NEG Urine RBC 1 /hpf Urine WBC 1 /hpf Urine Squamous Epithelial <1 /hpf Cells Urine Bacteria RARE /hpf Urine Hyaline Casts 17 /lpf Microscopic Urinalysis Comment CULT NOT INDICATED Ovalocytes 1+ Imaging Last Impressions Chest X-Ray 04/22/17 0000 Signed Impressions: Service Date/Time: Saturday, April 22, 2017 15:20 - CONCLUSION: 1. Massive cardiomegaly. 2. Thoracic stent graft. 3. No overt congestive failure. 4. Surgical clips in the right axilla. Jeffery Sue MD FACR Assessment and Plan Problem List: (1) CHF (congestive heart failure) (2) Nonischemic cardiomyopathy (3) AI (aortic insufficiency) (4) MR (mitral regurgitation) (5) Hypertension (6) Thoracic aortic aneurysm without rupture (7) Bilateral lower extremity edema (8) Wounds, multiple open, lower extremity Assessment and Plan Not diuresing well, high BUN/creat ratio, still w significant edema. Seen by wound care. Continue diuresis, monitor renal fx. Titrate meds for CHF. Increase activity. Multiple serious problems, overall prognosis guarded. Laura Ko MD Apr 23, 2017 15:52
[2017-04-23] MEDS ORDERED: FUROSEMIDE 40 MG/4 ML VIAL IV PUSH ONE (16:00)
[2017-04-23] MEDS: LISINOPRIL 5 MG TAB PO SCH (16:23)
--- NOTE | 2017-04-23 17:09 | HHI.PR ---
Subjective Remarks Patient resting in bed comfortably no chest pain or short of breath on O2 nasal cannula Objective Vitals Vital Signs Date Time Temp Pulse Resp B/P Pulse Ox O2 Delivery O2 Flow Rate FiO2 04/23/17 15:28 95 Nasal Cannula 2.00 04/23/17 12:00 97.1 76 24 113/65 96 04/23/17 08:23 96 Nasal Cannula 2.00 04/23/17 08:00 97.1 97 24 120/80 97 04/23/17 00:00 97.6 94 18 110/75 96 04/22/17 20:36 97 Nasal Cannula 2.00 04/22/17 20:00 97.5 115 18 118/67 92 04/22/17 19:45 81 I/O 04/22/17 04/22/17 04/22/17 04/23/17 04/23/17 04/23/17 07:00 15:00 23:00 07:00 15:00 23:00 Intake Total 222 ml 100 ml Output Total 200 ml 300 ml Balance 22 ml -200 ml Intake Oral 220 ml 100 ml IV Total 2 ml Output Urine Total 200 ml 300 ml # Voids 1 # Bowel Movements 0 0 0 Result Diagram: 04/23/1772004/23/1721 Objective Remarks GENERAL: This is a well-nourished, well-developed patient, in no apparent distress. SKIN: No rashes, warm and dry HEAD: Atraumatic. Normocephalic. EYES: Pupils equal round and reactive. Extraocular motions intact. No scleral icterus. ENT: Nose without bleeding, or drainage, Airway patent. NECK: Trachea midline. Supple CARDIOVASCULAR: Regular rate and rhythm without murmurs, gallops, or rubs. RESPIRATORY: Fair air entry bilaterally. No wheezes, rales, or rhonchi. GASTROINTESTINAL: Abdomen soft, non-tender, nondistended. Positive bowel sounds MUSCULOSKELETAL: Extremities without clubbing, cyanosis, or edema. Pedal pulses appreciated NEUROLOGICAL: Awake and alert. Moves all extremity. Normal speech.no focal neurological deficit A/P Assessment and Plan 04/23: Continue diuresing with Lasix, awaiting cardiology consultation, repeat BMP and BNP in a.m., chest x-ray personally reviewed by me showed massive cardiomegaly, no overt failure, thoracic stent A/P: 86 years old female with history of advanced CHF and valvulopathy, breast cancer admitted directly to hospitalist service per request of her correctional corporal Hypoxia and increased need of oxygen dyspnea on exertion Rule out CHF exacerbation CBC BMP, BNP, chest x-ray Lasix 40 mg iv Consulted cardiology and discussed with Dr. francis O2 to keep O2 sat above 92% 2-D echo from June 2016 showed EF 20-25%, severe MR , AR, severely dilated left at p.m., and pulmonary pressure is 44 mmgh, will defer repeating 2-D echo for correctional corporal History of COPD per previous record: Patient denied history of smoking Continue O2, we'll provide DuoNeb No significant wheezes H/O Hypertension A pressure controlled now we'll monitor, Vasotec as needed Lower extremity wound and edema She came with wrap compression, I removed it and inspected the left leg there was some bleeding wound we consulted wound care, I recommended to decrease libido pressure on the leg and rewrap it Awaiting wound care recommendation Prophylaxis with SCD and heparin Mckenzie Weldon MD Apr 23, 2017 17:09
[2017-04-23] MEDS: CARVEDILOL 6.25 MG TAB PO SCH ×2 (21:00→22:06)
[2017-04-24] VITALS (10 sets, daily range): BP systolic 98–130; BP diastolic 56–75; PULSE 80–118; RESP 18–24; TEMP 97.1–98.8; O2SAT 94–100
[2017-04-24] MEDS: HEPARIN SODIUM - SQ 10,000 UNITS/ML VIAL SQ SCH ×3 (00:58→17:22)
[2017-04-24 07:26] LABS: BICARBONATE 35.5 MEQ/L (21.0-32.0); MAGNESIUM 2.5 MG/DL (1.5-2.5); POTASSIUM 3.4 MEQ/L (3.5-5.1)
[2017-04-24] MEDS: RESP: ALBUTEROL 2.5 MG/IPRATROPIUM 0.5 MG NEB (SCH) NEB ×4 (08:19→19:31)
[2017-04-24] MEDS: DOCUSATE SODIUM 50 MG/SENNA 8.6 MG TAB PO SCH ×2 (09:00→21:12)
[2017-04-24] MEDS: LISINOPRIL 5 MG TAB PO SCH (09:00)
[2017-04-24] MEDS: SODIUM CHLORIDE 0.9% FLUSH 10 ML FLUSH IV FLUSH SCH ×2 (09:34→21:12)
[2017-04-24] MEDS: FUROSEMIDE 40 MG/4 ML VIAL IVP SCH ×2 (09:34→17:23)
[2017-04-24] MEDS: CARVEDILOL 6.25 MG TAB PO SCH ×2 (09:36→21:12)
--- NOTE | 2017-04-24 10:07 | EKG ---
Date Performed: 04/22/2017 Time Performed: 16:06:04 PTAGE: 86 years EKG: ATRIAL FIBRILLATION MARKED LEFT AXIS DEVIATION S1-S2-S3 PATTERN, CONSISTENT WITH PULMONARY DISEASE, RVH, OR NORMAL VARIANT INCOMPLETE RIGHT BUNDLE BRANCH BLOCK VOLTAGE CRITERIA FOR LVH POSSIBL E ANTEROSEPTAL MYOCARDIAL INFARCTION , OF INDETERMINATE AGE ABNORMAL ECG PREVIOUS TRACING : 08/29/2016 10.14 DOCTOR: Jim Joel Interpretating Date/Time 04/24/2017 09:52:26
--- NOTE | 2017-04-24 16:09 | PD.CARD.PN ---
Subjective Subjective Remarks No CP, minimal SOB, edema improving Objective Medications Current Medications Medications (Trade) Dose Ordered Sig/Duncan Route Start Time Stop Time Status Last Admin (NS Flush) 2 ml UNSCH PRN IV FLUSH 04/22/17 15:15 (NS Flush) 2 ml BID IV FLUSH 04/22/17 21:00 04/24/17 09:34 (Tylenol) 650 mg Q4H PRN PO 04/22/17 15:15 (Zofran Inj) 4 mg Q6H PRN IVP 04/22/17 15:15 (Heparin Inj) 5,000 units Q8H SQ 04/22/17 16:00 04/24/17 09:35 (Narcan Inj) 0.4 mg UNSCH PRN IV 04/22/17 15:15 (Naya-Colace) 1 tab BID PO 04/22/17 21:00 04/23/17 22:06 (Milk Of Magnesia Liq) 30 ml Q12H PRN PO 04/22/17 15:15 (Lasix Inj) 40 mg BID@18 IVP 04/22/17 18:00 04/24/17 09:34 (Vasotec Inj) 1.25 mg Q6H PRN IV PUSH 04/22/17 17:45 (Coreg) 6.25 mg Q12HR PO 04/23/17 21:00 04/24/17 09:36 (Prinivil) 5 mg DAILY PO 04/23/17 16:00 04/23/17 16:23 Vital Signs / I&O Vital Signs Date Time Temp Pulse Resp B/P Pulse Ox O2 Delivery O2 Flow Rate FiO2 04/24/17 15:07 98 Nasal Cannula 2.00 04/24/17 12:00 97.7 85 24 104/56 97 04/24/17 11:34 Nasal Cannula 2.00 04/24/17 08:19 97 Nasal Cannula 2.00 04/24/17 08:00 97.7 114 24 99/75 97 04/24/17 07:59 91 04/24/17 04:00 97.6 108 18 130/66 94 04/24/17 00:00 97.5 82 18 113/72 94 04/23/17 22:00 Nasal Cannula 2.00 04/23/17 20:00 97.8 96 18 91/62 94 I/O 04/23/17 04/23/17 04/23/17 04/24/17 04/24/17 04/24/17 07:00 15:00 23:00 07:00 15:00 23:00 Intake Total 100 ml 340 ml 200 ml 240 ml Output Total 300 ml 100 ml 400 ml 1200 ml Balance -200 ml 240 ml -200 ml -960 ml Intake Oral 100 ml 340 ml 200 ml 240 ml Output Urine Total 300 ml 100 ml 400 ml 1200 ml # Voids 3 # Bowel Movements 0 Physical Exam GENERAL: In NAD, on O2, sitting in a chair SKIN: Warm and dry. HEAD: Normocephalic. EYES: No scleral icterus. No injection or drainage. NECK: Supple, trachea midline. No JVD or lymphadenopathy. CARDIOVASCULAR: Regular rate and rhythm with 2/6 syst and diast murmurs, no gallop. RESPIRATORY: Breath sounds decreased, equal bilaterally. No accessory muscle use. GASTROINTESTINAL: Abdomen soft, non-tender, nondistended. MUSCULOSKELETAL: No cyanosis, 1+ LE edema, LE wounds dressed. Laboratory Laboratory Tests Test 04/24/17 05:29 Sodium Level 144 MEQ/L Potassium Level 3.4 MEQ/L Chloride Level 102 MEQ/L Carbon Dioxide Level 35.5 MEQ/L Anion Gap 7 MEQ/L Blood Urea Nitrogen 39 MG/DL Creatinine 1.33 MG/DL Estimat Glomerular Filtration 38 ML/MIN Rate Random Glucose 77 MG/DL Calcium Level 8.7 MG/DL Magnesium Level 2.5 MG/DL B-Type Natriuretic Peptide GREATER THAN 5000 PG/ML Imaging Last Impressions Chest X-Ray 04/22/17 0000 Signed Impressions: Service Date/Time: Saturday, April 22, 2017 15:20 - CONCLUSION: 1. Massive cardiomegaly. 2. Thoracic stent graft. 3. No overt congestive failure. 4. Surgical clips in the right axilla. Jeffery Sue MD FACR Assessment and Plan Problem List: (1) CHF (congestive heart failure) (2) Nonischemic cardiomyopathy (3) AI (aortic insufficiency) (4) MR (mitral regurgitation) (5) Hypertension (6) Thoracic aortic aneurysm without rupture (7) Bilateral lower extremity edema (8) Wounds, multiple open, lower extremity Assessment and Plan Diuresing better, edema improving. Seen by wound care. Continue diuresis, monitor renal fx. Titrate meds for CHF as tolerated. Increase activity. If progress continues, may be discharged within 24-48 hrs. Will need to monitor closely daily weight and edema as outpatient. Laura Ko MD Apr 24, 2017 16:09
[2017-04-25] VITALS (9 sets, daily range): BP systolic 90–122; BP diastolic 56–71; PULSE 72–102; RESP 18–20; TEMP 97.3–97.7; O2SAT 93–99
[2017-04-25] MEDS: HEPARIN SODIUM - SQ 10,000 UNITS/ML VIAL SQ SCH ×3 (00:28→16:32)
[2017-04-25] MEDS: RESP: ALBUTEROL 2.5 MG/IPRATROPIUM 0.5 MG NEB (SCH) NEB ×3 (08:25→15:32)
[2017-04-25 08:32] LABS: BICARBONATE 36.4 MEQ/L (21.0-32.0); BICARBONATE 37.2 MEQ/L (21.0-32.0); POTASSIUM 3.5 MEQ/L (3.5-5.1); POTASSIUM 3.6 MEQ/L (3.5-5.1)
[2017-04-25] MEDS: CARVEDILOL 6.25 MG TAB PO SCH (09:00)
[2017-04-25] MEDS: LISINOPRIL 5 MG TAB PO SCH (09:00)
[2017-04-25] MEDS: SODIUM CHLORIDE 0.9% FLUSH 10 ML FLUSH IV FLUSH SCH (09:07)
[2017-04-25] MEDS: DOCUSATE SODIUM 50 MG/SENNA 8.6 MG TAB PO SCH (09:07)
[2017-04-25] MEDS: FUROSEMIDE 40 MG/4 ML VIAL IVP SCH ×2 (09:08→17:21)
[2017-04-25] MEDS ORDERED: POTASSIUM CHLORIDE 20 MEQ CONTROLLED RELEASE TAB PO ONE ×2 (10:45)
--- NOTE | 2017-04-25 11:08 | HHI.PR ---
Subjective Remarks Delayed entry note from 04/24 Patient resting in bed, breathing better no fever or chills no chest pain Continue diuresis Objective Vitals Vital Signs Date Time Temp Pulse Resp B/P Pulse Ox O2 Delivery O2 Flow Rate FiO2 04/25/17 09:17 Nasal Cannula 2.00 04/25/17 08:25 98 Nasal Cannula 2.00 04/25/17 08:00 97.3 90 20 94/67 99 04/25/17 04:00 97.7 102 18 98/60 94 04/25/17 04:00 Room Air 04/25/17 01:25 90/58 04/25/17 00:00 97.3 72 18 93 04/24/17 20:15 86 04/24/17 20:00 Room Air 04/24/17 20:00 98.8 118 20 106/58 94 04/24/17 16:00 97.1 80 22 98/75 100 04/24/17 15:07 98 Nasal Cannula 2.00 04/24/17 12:00 97.7 85 24 104/56 97 04/24/17 11:34 Nasal Cannula 2.00 I/O 04/24/17 04/24/17 04/24/17 04/25/17 04/25/17 04/25/17 07:00 15:00 23:00 07:00 15:00 23:00 Intake Total 240 ml 480 ml 240 ml Output Total 1200 ml 700 ml 200 ml Balance -960 ml -220 ml 40 ml Intake Oral 240 ml 480 ml 240 ml Output Urine Total 1200 ml 700 ml 200 ml # Voids 1 # Bowel Movements 1 0 Result Diagram: 04/23/17 0721 04/25/17 0702 Objective Remarks GENERAL: This is a well-nourished, well-developed patient, in no apparent distress. SKIN: No rashes, warm and dry HEAD: Atraumatic. Normocephalic. EYES: Pupils equal round and reactive. Extraocular motions intact. No scleral icterus. ENT: Nose without bleeding, or drainage, Airway patent. NECK: Trachea midline. Supple CARDIOVASCULAR: Regular rate and rhythm without murmurs, gallops, or rubs. RESPIRATORY: Fair air entry bilaterally. No wheezes, rales, or rhonchi. GASTROINTESTINAL: Abdomen soft, non-tender, nondistended. Positive bowel sounds MUSCULOSKELETAL: Extremities without clubbing, cyanosis, or edema. Pedal pulses appreciated NEUROLOGICAL: Awake and alert. Moves all extremity. Normal speech.no focal neurological deficit A/P Assessment and Plan 04/23: Continue diuresing with Lasix, awaiting cardiology consultation, repeat BMP and BNP in a.m., chest x-ray personally reviewed by me showed massive cardiomegaly, no overt failure, thoracic stent 04/24: Doing better on diuresis, appreciate cardiology consultation, BMP in a.m. A/P: 86 years old female with history of advanced CHF and valvulopathy, breast cancer admitted directly to hospitalist service per request of her devops Hypoxia and increased need of oxygen dyspnea on exertion Rule out CHF exacerbation CBC BMP, BNP, chest x-ray Lasix 40 mg iv Consulted cardiology and discussed with Dr. francis O2 to keep O2 sat above 92% 2-D echo from June 2016 showed EF 20-25%, severe MR , AR, severely dilated left at p.m., and pulmonary pressure is 44 mmgh, will defer repeating 2-D echo for devops History of COPD per previous record: Patient denied history of smoking Continue O2, we'll provide DuoNeb No significant wheezes H/O Hypertension A pressure controlled now we'll monitor, Vasotec as needed Lower extremity wound and edema She came with wrap compression, I removed it and inspected the left leg there was some bleeding wound we consulted wound care, I recommended to decrease libido pressure on the leg and rewrap it Awaiting wound care recommendation Prophylaxis with SCD and heparin Mckenzie Weldon MD Apr 25, 2017 11:08
[2017-04-25] MEDS ORDERED: CARV6.25 PO (14:05)
[2017-04-25] MEDS ORDERED: FURO1TAB60 PO (14:05)
--- NOTE | 2017-04-25 16:12 | PD.CARD.PN ---
Subjective Subjective Remarks No CP, mild SOB, edema improved, no dizziness Objective Medications Current Medications Medications (Trade) Dose Ordered Sig/Duncan Route Start Time Stop Time Status Last Admin (NS Flush) 2 ml UNSCH PRN IV FLUSH 04/22/17 15:15 (NS Flush) 2 ml BID IV FLUSH 04/22/17 21:00 04/25/17 09:07 (Tylenol) 650 mg Q4H PRN PO 04/22/17 15:15 (Zofran Inj) 4 mg Q6H PRN IVP 04/22/17 15:15 (Heparin Inj) 5,000 units Q8H SQ 04/22/17 16:00 04/25/17 09:07 (Narcan Inj) 0.4 mg UNSCH PRN IV 04/22/17 15:15 (Naya-Colace) 1 tab BID PO 04/22/17 21:00 04/25/17 09:07 (Milk Of Magnesia Liq) 30 ml Q12H PRN PO 04/22/17 15:15 (Lasix Inj) 40 mg BID@18 IVP 04/22/17 18:00 04/25/17 09:08 (Vasotec Inj) 1.25 mg Q6H PRN IV PUSH 04/22/17 17:45 (Coreg) 6.25 mg Q12HR PO 04/23/17 21:00 04/24/17 21:12 (Prinivil) 5 mg DAILY PO 04/23/17 16:00 04/23/17 16:23 Vital Signs / I&O Vital Signs Date Time Temp Pulse Resp B/P Pulse Ox O2 Delivery O2 Flow Rate FiO2 04/25/17 15:32 99 Nasal Cannula 2.00 04/25/17 12:00 97.6 74 20 111/71 99 04/25/17 09:17 Nasal Cannula 2.00 04/25/17 08:25 98 Nasal Cannula 2.00 04/25/17 08:06 73 04/25/17 08:00 97.3 90 20 94/67 99 04/25/17 04:00 97.7 102 18 98/60 94 04/25/17 04:00 Room Air 04/25/17 01:25 90/58 04/25/17 00:00 97.3 72 18 93 04/24/17 20:15 86 04/24/17 20:00 Room Air 04/24/17 20:00 98.8 118 20 106/58 94 I/O 04/24/17 04/24/17 04/24/17 04/25/17 04/25/17 04/25/17 07:00 15:00 23:00 07:00 15:00 23:00 Intake Total 240 ml 480 ml 240 ml Output Total 1200 ml 700 ml 200 ml Balance -960 ml -220 ml 40 ml Intake Oral 240 ml 480 ml 240 ml Output Urine Total 1200 ml 700 ml 200 ml # Voids 1 # Bowel Movements 1 0 Physical Exam GENERAL: In NAD, on O2, sitting in a chair SKIN: Warm and dry. HEAD: Normocephalic. EYES: No scleral icterus. No injection or drainage. NECK: Supple, trachea midline. No JVD or lymphadenopathy. CARDIOVASCULAR: Regular rate and rhythm with 2/6 syst and diast murmurs, no gallop. RESPIRATORY: Breath sounds decreased, equal bilaterally. No accessory muscle use. GASTROINTESTINAL: Abdomen soft, non-tender, nondistended. MUSCULOSKELETAL: No cyanosis, 1+ LE edema, LE wounds dressed. Laboratory Laboratory Tests Test 04/25/17 07:02 Sodium Level 142 MEQ/L Potassium Level 3.5 MEQ/L Chloride Level 98 MEQ/L Carbon Dioxide Level 36.4 MEQ/L Anion Gap 8 MEQ/L Blood Urea Nitrogen 40 MG/DL Creatinine 1.24 MG/DL Estimat Glomerular Filtration 41 ML/MIN Rate Random Glucose 82 MG/DL Calcium Level 8.3 MG/DL B-Type Natriuretic Peptide 4031 PG/ML Imaging Last Impressions Chest X-Ray 04/22/17 0000 Signed Impressions: Service Date/Time: Saturday, April 22, 2017 15:20 - CONCLUSION: 1. Massive cardiomegaly. 2. Thoracic stent graft. 3. No overt congestive failure. 4. Surgical clips in the right axilla. Jeffery Sue MD FACR Assessment and Plan Problem List: (1) CHF (congestive heart failure) (2) Nonischemic cardiomyopathy (3) AI (aortic insufficiency) (4) MR (mitral regurgitation) (5) Hypertension (6) Thoracic aortic aneurysm without rupture (7) Bilateral lower extremity edema (8) Wounds, multiple open, lower extremity Assessment and Plan Diuresing better, edema improving, switch to PO furosemide. Continue diuresis, renal fx remains stable. Titrate meds for CHF as tolerated. Increase activity. Will need to monitor closely daily weight and edema as outpatient. OK to discharge to rehab. Will schedule outpatient f/u. Laura Ko MD Apr 25, 2017 16:12
--- NOTE | 2017-04-28 13:34 | HHI.DS ---
Discharge Summary Admission Date Apr 22, 2017 at 15:09 Discharge Date: Apr 25, 2017 Admitting Diagnosis (1) Bilateral lower extremity edema ICD Code: R60.0 (2) Wounds, multiple open, lower extremity ICD Code: S81.809A (3) MR (mitral regurgitation) ICD Code: I34.0 (4) CHF (congestive heart failure) ICD Code: I50.9 (5) CHF exacerbation ICD Code: I50.9 Procedures None Brief History - From Admission 86 years old female with history of advanced CHF and stage I breast cancer diagnosed in 2005, coronary artery disease, chronic lower extremity edema and wound, osteopenia osteoporosis, thoracic aneurysm transferred directly to the hospital as a direct admit. I received a call this morning from Dr. francis the [employer] consultant requesting direct admit due to possible worsening CHF. Patient seen in the room she was laying in bed on oxygen nasal cannula she seems to be stable on oxygen. She told me she is on oxygen at home but only at night however within the last 2 days her dyspnea become more progressive and worsening she can do further movement without getting short of breath, no chest pain fever or chills, no abdominal pain diarrhea constipation dysuria urgency frequency CBC/BMP: 04/25/17 0702 PE at Discharge GENERAL: This is a well-nourished, well-developed patient, in no apparent distress. SKIN: No rashes, warm and dry HEAD: Atraumatic. Normocephalic. EYES: Pupils equal round and reactive. Extraocular motions intact. No scleral icterus. ENT: Nose without bleeding, or drainage, Airway patent. NECK: Trachea midline. Supple CARDIOVASCULAR: Regular rate and rhythm without murmurs, gallops, or rubs. RESPIRATORY: Fair air entry bilaterally. No wheezes, rales, or rhonchi. GASTROINTESTINAL: Abdomen soft, non-tender, nondistended. Positive bowel sounds MUSCULOSKELETAL: Extremities without clubbing, cyanosis, or edema. Pedal pulses appreciated NEUROLOGICAL: Awake and alert. Moves all extremity. Normal speech.no focal neurological deficit Hospital Course 86 years old female with history of advanced CHF and valvulopathy, breast cancer admitted directly to hospitalist service per request of her [employer] consultant Hypoxia and increased need of oxygen dyspnea on exertion Rule out CHF exacerbation 2-D echo from June 2016 showed EF 20-25%, severe MR , AR, severely dilated left at p.m., and pulmonary pressure is 44 mmgh, will defer repeating 2-D echo for cardiologis CBC BMP, BNP, chest x-ray Patient started on Lasix 40 mg iv, Consulted cardiology and discussed with Dr. francis History of COPD per previous record, Patient denied history of smoking Continue O2, we'll provide DuoNeb, No significant wheezes Lower extremity wound and edema, She came with wrap compression,consulted wound care Prophylaxis with SCD and heparin [id number] encounter performed with the patient on discharge day, as well as physical exam, summary of hospitalization course and postdischarge plan has been D/W the patient. 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 Discharge medications reviewed and printed and signed, post discharge follow up visit with PCP and other specialist as well as Brief hospital course and discharge summary has been placed. Pt Condition on Discharge: Fair Discharge Disposition: Discharge to SNF Discharge Time: > 30 minutes Discharge Instructions DIET: Follow Instructions for: Heart Healthy Diet Fluid Restrictions: 1500cc/day Activities you can perform: See Additionl Instruction Follow up Referrals: Cardiology - 10 Days with Laura Ko MD SNF/[facility]/ with [facility] New Medications: Furosemide (Lasix) 40 Mg Tab 40 MG PO BID chf #60 Ref 0 TAB Carvedilol (Coreg) 6.25 Mg Tab 6.25 MG PO Q12HR chf #60 TAB Continued Medications: Fluticasone Nasal [place] (Fluticasone Nasal [place]) 50 Mcg/Act Naspr 50 MCG EACH NARE BID 50 mcg/spray Allergy Management #1 Ref 0 BOTTLE Fluticasone-Salmeterol Inh (Advair Diskus Inh) 250-50 Mcg/Blist Aer 1 PUFF INH BID Rinse mouth after use. #1 Ref 0 INHALER Lisinopril (Lisinopril) 5 Mg Tab 5 MG PO DAILY Blood Pressure Management #30 Ref 0 TAB Potassium Chloride ER (Potassium Chloride ER) 20 Meq Tab 20 MEQ PO DAILY Electrolyte Replacement #30 Ref 0 TAB Mckenzie Weldon MD Apr 28, 2017 13:34
== END 2017-04-25 18:10 ==
LOC: N04B 13:25 → UNDOADMIN 13:25 → INTOOBSV 15:09 → N04B 15:09 → UNDODISIN 04-25 18:10
PROVIDERS: ADMIT Hospitalist; ATTEND Hospitalist
DX: I11.0 Hypertensive heart disease with heart failure (principal); L97.229 Non-pressure chronic ulcer of left calf with unspecified severity; I27.2 Other secondary pulmonary hypertension; I42.9 Cardiomyopathy, unspecified; L97.219 Non-pressure chronic ulcer of right calf with unspecified severity; I71.2 Thoracic aortic aneurysm, without rupture; S81.801A Unspecified open wound, right lower leg, initial encounter; S81.802A Unspecified open wound, left lower leg, initial encounter; I50.23 Acute on chronic systolic (congestive) heart failure; I35.1 Nonrheumatic aortic (valve) insufficiency; R09.02 Hypoxemia; I34.0 Nonrheumatic mitral (valve) insufficiency; I25.10 Atherosclerotic heart disease of native coronary artery without angina pectoris; M81.0 Age-related osteoporosis without current pathological fracture; J44.9 Chronic obstructive pulmonary disease, unspecified; G47.00 Insomnia, unspecified; I44.4 Left anterior fascicular block; I49.3 Ventricular premature depolarization; I07.1 Rheumatic tricuspid insufficiency; Z85.3 Personal history of malignant neoplasm of breast; Z88.2 Allergy status to sulfonamides; Z99.81 Dependence on supplemental oxygen; Z79.899 Other long term (current) drug therapy
CPT/HCPCS: 71010; 80048; 81001; 82948; 83735; 83880; 84100; 85025; 93005; 94640; 94664; 96372; 96374; 96376; 97110; 97162; 97166; 97535; G0378; G8987; G8988; J1644; J1940

== ENCOUNTER 2017-07-12 16:36 | Inpatient (IN) | payer MEDICARE, OTHER ==
[~2017-07-12] VITALS: Ht 162.6 cm; Wt 50.6 kg
[~2017-07-12 16:36] MED LIST changes: +CARV6.25 PO; +FURO1TAB60 PO; -FURO20TA PO; +FURO40TA PO; -LISI-515 PO; +LISI-519 PO; +POTA-163 PO; -POTA10TA2 PO
[2017-07-12 16:40] VITALS: BP 167/59; PULSE 54; RESP 20; TEMP 97.6; O2SAT 95
[2017-07-12] MEDS ORDERED: ISOS10TA3 PO (16:47)
[2017-07-12] MEDS ORDERED: FLUT1INH INH (16:47)
[2017-07-12] MEDS ORDERED: SPIR25TA PO (16:47)
[2017-07-12] MEDS ORDERED: SODIUM CHLORID 0.9% 500 ML INJ 500 ML IV ONE (17:00)
[2017-07-12] MEDS ORDERED: SODIUM CHLORIDE 0.9% FLUSH 5 ML FLUSH IV FLUSH PRN (17:00)
[2017-07-12 17:04] LABS: AUTOMATED NEUTROPHIL # 2.7 TH/MM3 (1.8-7.7); BASOPHIL # 0.1 TH/MM3 (0-0.2); BASOPHIL % 2.3 % (0.0-2.0); EOSINOPHIL # 0.1 TH/MM3 (0-0.4); EOSINOPHIL % 2.2 % (0.0-4.0); HEMATOCRIT 40.3 % (35.0-46.0); MEAN CELL VOLUME 97.7 FL (80.0-100.0); MEAN CORPUSCULAR HEMOGLOBIN 31.9 PG (27.0-34.0); MEAN CORPUSCULAR HGB CONC 32.7 % (32.0-36.0); MONO % 10.6 % (0.0-8.0); NEUT % 62.9 % (16.0-70.0); PLATELET COUNT 89 TH/MM3 (150-450); RED BLOOD COUNT 4.12 MIL/MM3 (4.00-5.30); RED CELL DISTRIBUTION WIDTH 13.4 % (11.6-17.2); WHITE BLOOD COUNT 4.4 TH/MM3 (4.0-11.0)
[2017-07-12 17:09] LABS: HEMO FLAGS AUTO DIFF
[2017-07-12 17:11] LABS: CHLORIDE 97 MEQ/L (98-107); POTASSIUM 4.7 MEQ/L (3.5-5.1); SODIUM (NA) 137 MEQ/L (136-145)
[2017-07-12 17:14] LABS: ANION GAP 5 MEQ/L (5-15); APTT (PATIENT) 26.6 SEC (24.3-30.1); BICARBONATE 34.6 MEQ/L (21.0-32.0); BLOOD UREA NITROGEN 41 MG/DL (7-18); INTERNATIONAL NORMALIZED RATIO 1.1 RATIO; PROTHROMBIN TIME - PATIENT 12.2 SEC (9.8-11.6)
[2017-07-12 17:17] VITALS: O2SAT 98
[2017-07-12 17:17] LABS: ALT (GPT) 29 U/L (10-53); AST (GOT) 30 U/L (15-37); GLOMERULAR FILTRATION RATE 39 ML/MIN (>89)
[2017-07-12 17:19] LABS: TOTAL BILIRUBIN ADULT 0.5 MG/DL (0.2-1.0)
[2017-07-12 17:20] LABS: ALKALINE PHOSPHATASE 62 U/L (45-117)
[2017-07-12 17:23] LABS: CREATINE KINASE 65 U/L (26-192)
--- NOTE | 2017-07-12 17:32 | RADRPT ---
EXAM DATE/TIME: 07/12/2017 17:21 [facility] COMPARISON: No previous studies available for comparison. INDICATIONS : Fell yesterday. Altered mental status. RADIATION DOSE: 60.01 CTDIvol (mGy) MEDICAL HISTORY : Aneurysm, abdominal. Congestive heart failure. Carcinoma, breast.Hypertension. SURGICAL HISTORY : Tonsillectomy. Appendectomy.Hysterectomy.Right lumpectomy. ENCOUNTER: Initial ACUITY: 2 days PAIN SCALE: 3/10 LOCATION: cranial TECHNIQUE: Multiple contiguous axial images were obtained of the head. Using automated exposure control and adj ustment of the mA and/or kV according to patient size, radiation dose was kept as low as reasonably a chievable to obtain optimal diagnostic quality images. DICOM format image data is available electro nically for review and comparison. FINDINGS: CEREBRUM: The ventricles are normal for age. No evidence of midline shift, mass lesion, hemorrhage or acute in farction. No extra-axial fluid collections are seen. Patient demonstrates mild microvascular ischemi c demyelinization in deep white matter small lacunar infarct in the left caudate nucleus. POSTERIOR F ANAYA: The cerebellum and brainstem are intact. The 4th ventricle is midline. The cerebelloponti ne angle is unremarkable. EXTRACRANIAL: The visualized portion of the orbits is intact. SKULL: The calvaria is intact. No evidence of skull fracture. Mild hyperostosis of the external aspect of t he calvarium left parietal region appreciated CONCLUSION: No acute intracranial abnormality with intact calvarium. Microvascular ischemic demyelinization in deep white matter and small lacunar remote infarct in the left caudate nucleus Ulysses Godfrey MD on July 12, 2017 at 17:28 Board Certified Radiologist. This report was verified electronically.
--- NOTE | 2017-07-12 17:35 | RADRPT ---
EXAM DATE/TIME: 07/12/2017 17:09 [facility] COMPARISON: CHEST SINGLE AP, April 22, 2017, 15:20. INDICATIONS : Chest pain. MEDICAL HISTORY : Carcinoma, breast. Chronic obstructive pulmonary disease. Congestive heart failure. SURGICAL HISTORY : Abdominal aortic aneurysm repair. Hysterectomy. Coronary stent. Appendectomy. Right lumpectomy. ENCOUNTER: Initial ACUITY: 1 day PAIN SCORE: Non-responsive. LOCATION: Bilateral chest FINDINGS: Again noted is marked cardiomegaly with a thoracic aortic stent in place as well as a probable right subclavian artery stent in place. Vascularity is normal the lung kovacs appearing centrally clear. Hart rgical clips noted in the right axilla . Blunted right costophrenic angle effusion has cleared CONCLUSION: No acute disease. Stable chest other than clearing of the right costophrenic angle effusion Ulysses Godfrey MD on July 12, 2017 at 17:32 Board Certified Radiologist. This report was verified electronically.
--- NOTE | 2017-07-12 17:37 | RADRPT ---
EXAM DATE/TIME: 07/12/2017 17:11 [facility] COMPARISON: No previous studies available for comparison. INDICATIONS : Left elbow pain. MEDICAL HISTORY : None. SURGICAL HISTORY : None. ENCOUNTER: Initial ACUITY: 1 day PAIN SCORE: Non-responsive. LOCATION: Left elbow. FINDINGS: Multiple view examination of the left elbow demonstrates no soft tissue swelling, joint effusion, or fracture. The osseous structures are in normal alignment. Bony mineralization is normal. CONCLUSION: Unremarkable examination of the left elbow. Ulysses Godfrey MD on July 12, 2017 at 17:35 Board Certified Radiologist. This report was verified electronically.
[2017-07-12 17:47] LABS: PLATELET ESTIMATE SMEAR LOW (NORMAL); PLATELET MORPHOLOGY NORMAL (NORMAL); SCAN/DIFF AUTO DIFF CONFIRMED
[2017-07-12] MEDS ORDERED: ASPIRIN 81 MG CHEW TAB CHEW ONE (18:15)
[2017-07-12 18:24] VITALS: BP 119/70; PULSE 60; RESP 16; O2SAT 94
[2017-07-12 18:37] LABS: BLOOD, URINE TRACE (NEG); GLUCOSE,URINE NEG (NEG); KETONE, URINE NEG (NEG); NITRITE,URINE NEG (NEG)
[2017-07-12 18:49] LABS: COMMENT (UR) CATH-CULT NOT IND; CULTURE IF INDICATED CATH CULTURE NOT IND; SQUAMOUS EPITHELIAL CELL URINE 0-5 /hpf (0-5); URINE COLOR YELLOW (YELLW/STRAW); WBC, URINE 0-2 /hpf (0-5)
--- NOTE | 2017-07-12 18:54 | PD ---
HPI Chief Complaint: Fall Time Seen by Provider: 16:39 Travel History International Travel<30 days: No Contact w/Intl Traveler<30days: No Traveled to known affect area: No History of Present Illness HPI Patient is an 86-year-old female who was sent in by her primary care doctor due to altered mental status. Per her PCP, seemed more out of it than usual. Her home health aide reports that she fell, but the patient cannot remember this fall. The patient herself has no complaints. She seems awake and alert and oriented. She denies chest pain or shortness of breath. She denies any pain to her extremities. She denies any nausea or vomiting. She denies any dysuria. PFSH Past Medical History Hx Anticoagulant Therapy: No Arthritis: No Asthma: No Blood Disorders: No Anxiety: Yes Depression: No Heart Rhythm Problems: No Cancer: Yes (breast) Cardiovascular Problems: No High Cholesterol: Yes Chemotherapy: No Chest Pain: No Congestive Heart Failure: Yes COPD: Yes Coronary Artery Disease: Yes Diabetes: No Diminished Hearing: No Endocrine: No Gastrointestinal Disorders: No Genitourinary: No Hypertension: Yes Immune Disorder: No Implanted Vascular Access Dvce: No Musculoskeletal: Yes (Fibromyalga) Neurologic: No Psychiatric: No Reproductive: No Respiratory: No Immunizations Current: Yes Radiation Therapy: Yes Sleep Apnea: No Thyroid Disease: No Menopausal: Yes Past Surgical History Abdominal Surgery: No Appendectomy: Yes Cardiac Surgery: Yes (aortic anuerism) Coronary Stent: Yes Ear Surgery: No Endocrine Surgery: No Eye Surgery: Yes Genitourinary Surgery: No Gynecologic Surgery: Yes (lump ectomy and hysterctomy) Hysterectomy: Yes Oral Surgery: No Thoracic Surgery: No Tonsillectomy: Yes Other Surgery: Yes (right lumpectomy) Social History Alcohol Use: Yes (Occ.) Tobacco Use: No Substance Use: No Allergies-Medications (Allergen,Severity, Reaction): Coded Allergies: Sulfa (Sulfonamide Antibiotics) (Unverified Allergy, Unknown, LIGHTHEADED , 07/12/17) Reported Meds & Prescriptions Reported Meds & Active Scripts Active Coreg (Carvedilol) 6.25 Mg Tab 6.25 Mg PO Q12HR Reported Spironolactone 25 Mg Tab 12.5 Mg PO DAILY Isosorbide Mononitrate 10 Mg Tab 30 Mg PO HS Take 2 doses 7 hours apart. Breo Ellipta Inh (Fluticasone/Vilanterol) 100-25 Mcg/Act Inh 1 Puff INH DAILY Use daily at the same time. Furosemide 40 Mg Tab 40 Mg PO DAILY Lisinopril 5 Mg Tab 5 Mg PO DAILY Potassium Chloride ER (Potassium Chloride) 20 Meq Tab 20 Meq PO DAILY Fluticasone Nasal [place] 50 Mcg/Act Naspr 50 Mcg EACH NARE BID 50 mcg/spray Review of Systems Except as stated in HPI: all other systems reviewed are Neg General / Constitutional: No: Fever, Chills HENT: No: Headaches, Lightheadedness Cardiovascular: No: Chest Pain or Discomfort Respiratory: No: Shortness of Breath Gastrointestinal: No: Nausea, Vomiting, Abdominal Pain Genitourinary: No: Dysuria Musculoskeletal: No: Edema, Pain Skin: Positive Other (skin tears) Neurologic: No: Dizziness, Headache Physical Exam Narrative GENERAL: Awake and alert, in no acute distress. SKIN: Focused skin assessment warm/dry. Skin tear to the left elbow. Minor skin tear to the left leg. HEAD: Atraumatic. Normocephalic. EYES: Pupils equal and round. No scleral icterus. Her ocular movements intact. ENT: Mucous membranes pink and moist. NECK: Trachea midline. No JVD. No cervical spine tenderness. CARDIOVASCULAR: Regular rate and rhythm. No murmur appreciated. RESPIRATORY: No accessory muscle use. Clear to auscultation. Breath sounds equal bilaterally. GASTROINTESTINAL: Abdomen soft, non-tender, nondistended. MUSCULOSKELETAL: No obvious deformities. No clubbing. No cyanosis. No edema. No tenderness to palpation of her arms or legs. NEUROLOGICAL: Awake and alert. No obvious cranial nerve deficits. Motor grossly within normal limits. Normal speech. PSYCHIATRIC: Appropriate mood and affect; insight and judgment normal. Data Data Last Documented VS Vital Signs Date Time Temp Pulse Resp B/P (MAP) Pulse Ox O2 Delivery O2 Flow Rate FiO2 07/12/17 18:24 60 16 119/70 (86) 94 Room Air 07/12/17 16:40 97.6 Orders Orders Electrocardiogram (07/12/17 16:48) Complete Blood Count With Diff (07/12/17 16:48) Comprehensive Metabolic Panel (07/12/17 16:48) Creatine Kinase (Cpk) (07/12/17 16:48) Prothrombin Time / Inr (Pt) (07/12/17 16:48) Act Partial Throm Time (Ptt) (07/12/17 16:48) Troponin I (07/12/17 16:48) Urinalysis - C+S If Indicated (07/12/17 16:48) Chest, Single Ap (07/12/17 16:48) Ct Brain W/O Iv Contrast(Rout) (07/12/17 16:48) Blood Glucose (07/12/17 16:48) Ecg Monitoring (07/12/17 16:48) Iv Access Insert/Monitor (07/12/17 16:48) Oximetry (07/12/17 16:48) Sodium Chloride 0.9% Flush (Ns Flush) (07/12/17 17:00) Elbow, Complete (4 Vws) (07/12/17 ) Sodium Chlorid 0.9% 500 Ml Inj (Ns 500 M (07/12/17 17:00) Aspirin Chew (Aspirin Chew) (07/12/17 18:15) Admit Order (Ed Use Only) (07/12/17 ) Labs Laboratory Tests Test 07/12/17 17:00 07/12/17 17:50 White Blood Count 4.4 TH/MM3 Red Blood Count 4.12 MIL/MM3 Hemoglobin 13.2 GM/DL Hematocrit 40.3 % Mean Corpuscular Volume 97.7 FL Mean Corpuscular Hemoglobin 31.9 PG Mean Corpuscular Hemoglobin Concent 32.7 % Red Cell Distribution Width 13.4 % Platelet Count 89 TH/MM3 Mean Platelet Volume 7.7 FL Neutrophils (%) (Auto) 62.9 % Lymphocytes (%) (Auto) 22.0 % Monocytes (%) (Auto) 10.6 % Eosinophils (%) (Auto) 2.2 % Basophils (%) (Auto) 2.3 % Neutrophils # (Auto) 2.7 TH/MM3 Lymphocytes # (Auto) 1.0 TH/MM3 Monocytes # (Auto) 0.5 TH/MM3 Eosinophils # (Auto) 0.1 TH/MM3 Basophils # (Auto) 0.1 TH/MM3 CBC Comment AUTO DIFF Differential Comment AUTO DIFF CONFIRMED Platelet Estimate LOW Platelet Morphology Comment NORMAL Prothrombin Time 12.2 SEC Prothromb Time International Ratio 1.1 RATIO Activated Partial Thromboplast Time 26.6 SEC Blood Urea Nitrogen 41 MG/DL Creatinine 1.30 MG/DL Random Glucose 84 MG/DL Total Protein 6.7 GM/DL Albumin 3.2 GM/DL Calcium Level 8.1 MG/DL Alkaline Phosphatase 62 U/L Aspartate Amino Transf (AST/SGOT) 30 U/L Alanine Aminotransferase (ALT/SGPT) 29 U/L Total Bilirubin 0.5 MG/DL Sodium Level 137 MEQ/L Potassium Level 4.7 MEQ/L Chloride Level 97 MEQ/L Carbon Dioxide Level 34.6 MEQ/L Anion Gap 5 MEQ/L Estimat Glomerular Filtration Rate 39 ML/MIN Total Creatine Kinase 65 U/L Troponin I 0.10 NG/ML Urine Color YELLOW Urine Turbidity CLEAR Urine pH 7.0 Urine Specific Hanna 1.015 Urine Protein NEG mg/dL Urine Glucose (UA) NEG mg/dL Urine Ketones NEG mg/dL Urine Occult Blood TRACE Urine Nitrite NEG Urine Bilirubin NEG Urine Leukocyte Esterase NEG Urine WBC 0-2 /hpf Urine Squamous Epithelial Cells 0-5 /hpf Microscopic Urinalysis Comment CATH-CULT NOT IND MDM Medical Decision Making Medical Screen Exam Complete: Yes Emergency Medical Condition: Yes Medical Record Reviewed: Yes Interpretation(s) ECG shows sinus bradycardia, no ST elevation or depression. Differential Diagnosis Electrolyte abnormality versus dehydration versus UTI versus ACS Narrative Course Patient is an 86-year-old female who was sent in by her doctor due to altered mental status. Currently, patient is awake, oriented to person place and time. Exam shows no neurologic abnormalities. IV established, labs sent. Labs show a troponin of 0.10. Patient has had elevated troponins in the past that were 0.06 and 0.07. She is not currently having chest pain. She is given an aspirin, but anticoagulation was held. Patient will be placed in observation for repeat troponins. All other labs are within normal limits other than a BUNs of 41 and a creatinine of 1.3, suggesting dehydration. She has no evidence of infection. Chest x-ray shows no acute abnormalities. CT of her head shows no acute abnormalities. Last [address] 07/12/[id number] Signed Impressions: Service Date/Time: Wednesday, July 12, 2017 17:21 - CONCLUSION: No acute intracranial abnormality with intact calvarium. Microvascular ischemic demyelinization in deep white matter and small lacunar remote infarct in the left caudate nucleus Ulysses Godrfey MD Chest X-Ray 07/12/17 1823 Signed Impressions: Service Date/Time: Wednesday, July 12, 2017 17:09 - CONCLUSION: No acute disease. Stable chest other than clearing of the right costophrenic angle effusion Ulysses Godfrey MD Elbow X-Ray 07/12/17 0000 Signed Impressions: Service Date/Time: Wednesday, July 12, 2017 17:11 - CONCLUSION: Unremarkable examination of the left elbow. Ulysses Godfrey MD Diagnosis Primary Impression: Elevated troponin Admitting Information Admitting Physician Requests: Observation Condition: Stable Nelda Bauman MD Jul 12, 2017 18:54
[2017-07-12] MEDS ORDERED: ACETAMINOPHEN 325 MG TAB PO PRN (19:00)
[2017-07-12] MEDS ORDERED: BISACODYL 10 MG SUPP RECTAL PRN (19:00)
[2017-07-12] MEDS ORDERED: LACTULOSE SYRUP 20 GM/30 ML CUP PO PRN (19:00)
[2017-07-12] MEDS ORDERED: SENNOSIDES 8.6 MG TAB PO PRN (19:00)
[2017-07-12] MEDS ORDERED: NALOXONE HCL 0.4 MG/ML AMP IV PRN (19:00)
[2017-07-12] MEDS ORDERED: ONDANSETRON HCL 4 MG/2 ML VIAL IVP PRN (19:00)
[2017-07-12] MEDS ORDERED: SODIUM CHLORIDE 0.9% FLUSH 10 ML FLUSH IV FLUSH PRN (19:00)
[2017-07-12] MEDS ORDERED: MAGNESIUM HYDROXIDE SUSP 30 ML CUP PO PRN (19:00)
[2017-07-12 20:53] VITALS: BP 107/54; PULSE 50; RESP 18; TEMP 98.1; O2SAT 95
[2017-07-12 21:45] VITALS: BP 124/78; PULSE 54; PULSE 56; RESP 16; TEMP 96.4; O2SAT 94
[2017-07-12] MEDS: DOCUSATE SODIUM 50 MG/SENNA 8.6 MG TAB PO SCH (21:52)
[2017-07-12] MEDS: HEPARIN SODIUM - SQ 10,000 UNITS/ML VIAL SQ SCH (21:53)
[2017-07-12] MEDS: SODIUM CHLORIDE 0.9% FLUSH 10 ML FLUSH IV FLUSH SCH (21:53)
[2017-07-13] VITALS (9 sets, daily range): BP systolic 92–127; BP diastolic 47–69; PULSE 44–70; RESP 16–18; TEMP 95.9–97.4; O2SAT 92–97
[2017-07-13 07:07] LABS: AUTOMATED NEUTROPHIL # 2.3 TH/MM3 (1.8-7.7); BASOPHIL % 1.2 % (0.0-2.0); EOSINOPHIL # 0.1 TH/MM3 (0-0.4); EOSINOPHIL % 2.7 % (0.0-4.0); HEMATOCRIT 40.8 % (35.0-46.0); LYMPH % 29.2 % (9.0-44.0); LYMPHOCYTE # 1.1 TH/MM3 (1.0-4.8); MEAN CELL VOLUME 97.3 FL (80.0-100.0); MEAN CORPUSCULAR HEMOGLOBIN 31.9 PG (27.0-34.0); MEAN CORPUSCULAR HGB CONC 32.8 % (32.0-36.0); MONO % 9.3 % (0.0-8.0); NEUT % 57.6 % (16.0-70.0); PLATELET COUNT 90 TH/MM3 (150-450); RED BLOOD COUNT 4.19 MIL/MM3 (4.00-5.30); RED CELL DISTRIBUTION WIDTH 12.9 % (11.6-17.2); WHITE BLOOD COUNT 3.9 TH/MM3 (4.0-11.0)
[2017-07-13 07:26] LABS: BICARBONATE 29.6 MEQ/L (21.0-32.0); POTASSIUM 3.7 MEQ/L (3.5-5.1)
[2017-07-13 07:30] LABS: HEMO FLAGS AUTO DIFF
[2017-07-13 07:55] LABS: SCAN/DIFF AUTO DIFF CONFIRMED
[2017-07-13] MEDS: HEPARIN SODIUM - SQ 10,000 UNITS/ML VIAL SQ SCH (09:00)
[2017-07-13] MEDS: DOCUSATE SODIUM 50 MG/SENNA 8.6 MG TAB PO SCH ×2 (10:03→21:00)
[2017-07-13] MEDS: SODIUM CHLORIDE 0.9% FLUSH 10 ML FLUSH IV FLUSH SCH ×2 (10:04→21:57)
--- NOTE | 2017-07-13 15:07 | HHI.HP ---
[facility] No Primary Care Physician Admission Diagnosis fall, troponemia Diagnoses: Chief Complaint: Fall Travel History International Travel<30 Days: No Contact w/Intl Traveler <30 Da: No Traveled to Known Affected Are: No History of Present Illness Patient is a very pleasant 86-year-old female with baseline cognitive impairment. Patient lives in assisted living facility and had a fall and she was promptly sent to the emergency room for further evaluation. Patient was alert and oriented at baseline and had denied any dizziness or headache prior to the fall. She remembers being sent to the emergency room because of a fall but does not remember the fall itself. She has not had any shortness of breath and had any nausea or vomiting. She does have a history of congestive heart failure with severe dilated nonischemic cardiomyopathy and takes medications for the. She has been not eating unit as usual and patient may be dehydrated. In fact she was hypotensive and had some evidence of acute kidney injury here. She also has several cytopenia which appears to be chronic. There are no skin tears with some bleeding and the left knee and the left elbow. She has multiple ecchymotic areas and at this point has been admitted for further evaluation. Overnight she did receive some IV hydration and her blood pressure and renal function have improved. Patient is coherent although little slow to recall she does answer questions appropriately which appears to be her baseline. Patient has chronically elevated cardiac enzymes which are likely due to her chronic cardiomyopathy. EKG does show some bradycardia (patient is on a beta mi) however this is not new from previous evaluations at this facility. She has denied dizziness and currently feels well. Review of Systems Constitutional: DENIES: Diaphoretic episodes, Fatigue, Fever, Weight gain, Weight loss, Chills, Dizziness, Change in appetite, Night Sweats Endocrine: DENIES: Abnorml menstrual pattern, Heat/cold intolerance, Polydipsia , Polyuria, Polyphagia Eyes: DENIES: Blurred vision, Diplopia, Eye inflammation, Eye pain, Vision loss , Photosensitivity, Double Vision Ears, nose, mouth, throat: DENIES: Tinnitus, Hearing loss, Vertigo, Nasal discharge, Oral lesions, Throat pain, Hoarseness, Ear Pain, Running Nose, Epistaxis, Sinus Pain, Toothache, Odynophagia Respiratory: DENIES: Apneas, Cough, Snoring, Wheezing, Hemoptysis, Sputum production, Shortness of breath Cardiovascular: DENIES: Chest pain, Palpitations, Syncope, Dyspnea on Exertion , PND, Lower Extremity Edema, Orthopnea, Claudication Gastrointestinal: DENIES: Abdominal pain, Black stools, Bloody stools, Constipation, Diarrhea, Nausea, Vomiting, Difficulty Swallowing, Anorexia Genitourinary: DENIES: Abnormal vaginal bleeding, Dysmenorrhea, Dyspareunia, Sexual dysfunction, Urinary frequency, Urinary incontinence, Urgency, Hematuria , Dysuria, Nocturia, Vaginal discharge Musculoskeletal: DENIES: Joint pain, Muscle aches, Stiffness, Joint Swelling, Back pain, Neck pain Integumentary: DENIES: Abnormal pigmentation, Pruritus, Rash, Nail changes, Breast masses, Breast skin changes, Nipple discharge Hematologic/lymphatic: DENIES: Bruising, Lymphadenopathy Immunologic/allergic: DENIES: Eczema, Urticaria Neurologic: DENIES: Abnormal gait, Headache, Localized weakness, Paresthesias, Seizures, Speech Problems, Tremor, Poor Balance Psychiatric: COMPLAINS OF: Confusion (at baseline due to chronic cognitive impairment), DENIES: Anxiety, Mood changes, Depression, Hallucinations, Agitation, Suicidal Ideation, Homicidal Ideation, Delusions Past Family Social History Past Medical History Nonischemic cardiomyopathy, cognitive impairment, hypertension, mitral and aortic valve insufficiency, Aortic aneurysm Past Surgical History Appendectomy Conflict Hysterectomy Reported Medications Reviewed in the medical record, nothing new Allergies: Coded Allergies: Sulfa (Sulfonamide Antibiotics) (Unverified Allergy, Unknown, LIGHTHEADED , 07/12/17) Active Ordered Medications Reviewed in the medical record Family History Patient has outlived all of her family members and does not recall the medical history Social History [facility] resident, no tobacco or alcohol dependency Physical Exam Vital Signs Vital Signs Date Time Temp Pulse Resp B/P (MAP) Pulse Ox O2 Delivery O2 Flow Rate FiO2 07/13/17 12:00 96.3 53 18 111/58 (75) 95 07/13/17 10:05 51 07/13/17 08:35 94 21 07/13/17 08:00 95.9 54 18 96/61 (73) 97 07/13/17 04:00 96.6 50 16 121/59 (79) 92 8/30/17 00:20 97.4 44 16 127/69 (88) 94 07/12/17 21:45 56 07/12/17 21:45 96.4 54 16 124/78 (93) 94 07/12/17 21:45 94 21 07/12/17 21:18 07/12/17 20:53 98.1 50 18 107/54 (71) 95 07/12/17 19:00 Room Air 07/12/17 18:24 60 16 119/70 (86) 94 Room Air 07/12/17 17:17 98 07/12/17 16:40 97.6 54 20 167/59 (95) 95 Physical Exam Multiple skin tears and multiple bruises GENERAL: This is a well-nourished, well-developed patient, in no apparent distress. SKIN: Cool and dry HEAD: Atraumatic. Normocephalic. No temporal or scalp tenderness. EYES: Pupils equal round and reactive. Extraocular motions intact. No scleral icterus. No injection or drainage. ENT: Nose without bleeding, purulent drainage or septal hematoma. Throat without erythema, tonsillar hypertrophy or exudate. Uvula midline. Airway patent. NECK: Trachea midline. No JVD or lymphadenopathy. Supple, nontender, no meningeal signs. CARDIOVASCULAR: Regular rate and rhythm without murmurs, gallops, or rubs. RESPIRATORY: Clear to auscultation. Breath sounds equal bilaterally. No wheezes , rales, or rhonchi. GASTROINTESTINAL: Abdomen soft, non-tender, nondistended. No hepato-splenomegaly , or palpable masses. No guarding. MUSCULOSKELETAL: Extremities without clubbing, cyanosis, or edema. No joint tenderness, effusion, or edema noted. No calf tenderness. Negative Homans sign bilaterally. NEUROLOGICAL: Awake and alert, mildly confused but answering questions well. Cranial nerves II through XII intact. Motor and sensory grossly within normal limits. 3 out of 5 muscle strength in all muscle groups. Normal speech. Laboratory Laboratory Tests Test 07/12/17 17:00 07/12/17 17:50 07/12/17 21:06 07/13/17 02:40 White Blood Count 4.4 Red Blood Count 4.12 Hemoglobin 13.2 Hematocrit 40.3 Mean Corpuscular Volume 97.7 Mean Corpuscular Hemoglobin 31.9 Mean Corpuscular Hemoglobin Concent 32.7 Red Cell Distribution Width 13.4 Platelet Count 89 Mean Platelet Volume 7.7 Neutrophils (%) (Auto) 62.9 Lymphocytes (%) (Auto) 22.0 Monocytes (%) (Auto) 10.6 Eosinophils (%) (Auto) 2.2 Basophils (%) (Auto) 2.3 Neutrophils # (Auto) 2.7 Lymphocytes # (Auto) 1.0 Monocytes # (Auto) 0.5 Eosinophils # (Auto) 0.1 Basophils # (Auto) 0.1 CBC Comment AUTO DIFF Differential Comment AUTO DIFF CONFIRMED Platelet Estimate LOW Platelet Morphology Comment NORMAL Prothrombin Time 12.2 Prothromb Time International Ratio 1.1 Activated Partial Thromboplast Time 26.6 Blood Urea Nitrogen 41 Creatinine 1.30 Random Glucose 84 Total Protein 6.7 Albumin 3.2 Calcium Level 8.1 Alkaline Phosphatase 62 Aspartate Amino Transf (AST/SGOT) 30 Alanine Aminotransferase (ALT/SGPT) 29 Total Bilirubin 0.5 Sodium Level 137 Potassium Level 4.7 Chloride Level 97 Carbon Dioxide Level 34.6 Anion Gap 5 Estimat Glomerular Filtration Rate 39 Total Creatine Kinase 65 Troponin I 0.10 0.10 0.11 Urine Color YELLOW Urine Turbidity CLEAR Urine pH 7.0 Urine Specific Stuart 1.015 Urine Protein NEG Urine Glucose (UA) NEG Urine Ketones NEG Urine Occult Blood TRACE Urine Nitrite NEG Urine Bilirubin NEG Urine Leukocyte Esterase NEG Urine WBC 0-2 Urine Squamous Epithelial Cells 0-5 Microscopic Urinalysis Comment CATH-CULT NOT IND Test 07/13/17 06:15 White Blood Count 3.9 Red Blood Count 4.19 Hemoglobin 13.4 Hematocrit 40.8 Mean Corpuscular Volume 97.3 Mean Corpuscular Hemoglobin 31.9 Mean Corpuscular Hemoglobin Concent 32.8 Red Cell Distribution Width 12.9 Platelet Count 90 Mean Platelet Volume 7.9 Neutrophils (%) (Auto) 57.6 Lymphocytes (%) (Auto) 29.2 Monocytes (%) (Auto) 9.3 Eosinophils (%) (Auto) 2.7 Basophils (%) (Auto) 1.2 Neutrophils # (Auto) 2.3 Lymphocytes # (Auto) 1.1 Monocytes # (Auto) 0.4 Eosinophils # (Auto) 0.1 Basophils # (Auto) 0.0 CBC Comment AUTO DIFF Differential Comment AUTO DIFF CONFIRMED Blood Urea Nitrogen 32 Creatinine 0.88 Random Glucose 74 Calcium Level 8.5 Sodium Level 139 Potassium Level 3.7 Chloride Level 102 Carbon Dioxide Level 29.6 Anion Gap 7 Estimat Glomerular Filtration Rate 61 Result Diagram: 07/13/17 0615 07/13/1715 Imaging Last [address] 07/12/178 Signed Impressions: Service Date/Time: Wednesday, July 12, 2017 17:21 - CONCLUSION: No acute intracranial abnormality with intact calvarium. 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 Stable chest other than clearing of the right costophrenic angle effusion MD Britany Sommer VTE Risk Assessment Britany VTE Risk Assessment: Mod/High Risk (score >= 2) VTE Pharm Contraindication: High risk for bleeding Caprini Risk Assessment Model Point Value = 1 Point Value = 2 Point Value = 3 Point Value = 5 Age 41-60 Minor surgery BMI > 25 kg/m2 Swollen legs Varicose veins or History of unexplained or recurrent spontaneous Oral contraceptives or hormone replacement Sepsis (< 1 month) Serious lung disease, including pneumonia (< 1 month) Abnormal pulmonary function Acute myocardial infarction Congestive heart failure (< 1 month) History of inflammatory bowel disease Medical patient at bed rest Age 61-74 Arthroscopic surgery Major open surgery (> 45 min) Laparoscopic surgery (> 45 min) Malignancy Confined to bed (> 72 hours) Immobilizing plaster cast Central venous access Age >= 75 History of VTE Family history of VTE Factor V Leiden Prothrombin [id number] Lupus anticoagulant Anticardiolipin antibodies Elevated serum homocysteine Heparin-induced thrombocytopenia Other congenital or acquired thrombophilia Stroke (< 1 month) Elective arthroplasty Hip, pelvis, or leg fracture Acute spinal cord injury (< 1 month) Prophylaxis Regimen Total Risk Factor Score Risk Level Prophylaxis Regimen 0-1 Low Early ambulation 2 Moderate Order ONE of the following: *Sequential Compression Device (SCD) *Heparin 5000 units SQ BID 3-4 Higher Order ONE of the following medications: *Heparin 5000 units SQ TID *Enoxaparin/Lovenox 40 mg SQ daily (WT < 150 kg, CrCl > 30 mL/min) *Enoxaparin/Lovenox 30 mg SQ daily (WT < 150 kg, CrCl > 10-29 mL/min) *Enoxaparin/Lovenox 30 mg SQ BID (WT < 150 kg, CrCl > 30 mL/min) AND/OR *Sequential Compression Device (SCD) 5 or more Highest Order ONE of the following medications: *Heparin 5000 units SQ TID (Preferred with Epidurals) *Enoxaparin/Lovenox 40 mg SQ daily (WT < 150 kg, CrCl > 30 mL/min) *Enoxaparin/Lovenox 30 mg SQ daily (WT < 150 kg, CrCl > 10-29 mL/min) *Enoxaparin/Lovenox 30 mg SQ BID (WT < 150 kg, CrCl > 30 mL/min) AND *Sequential Compression Device (SCD) Assessment and Plan Problem List: (1) Hypotension ICD Code: I95.9 - Hypotension, unspecified Plan: May be due to dehydration, patient has evidence of acute kidney injury with improvement after 500 mL of normal saline intravenously We'll continue to follow with gentle fluids (patient with a history of nonischemic cardiomyopathy and EF of 20%) Patient on Aldactone and furosemide which likely we will need to adjust (2) Fall ICD Code: W19.XXXA - Unspecified fall, initial encounter Plan: PT eval Patient does live in assisted living in a local facility We'll continue supportive care (3) Metabolic encephalopathy ICD Code: G93.41 - Metabolic encephalopathy Plan: Likely superimposed on chronic dementia Rule out evidence of infection CT of the head unremarkable (4) Elevated troponin ICD Code: R77.8 - Other specified abnormalities of plasma proteins Status: Acute Plan: Chronically elevated troponins in this elderly patient with known cardiomyopathy. Continue surveillance No evidence of chest discomfort or anginal equivalents (5) Wounds, multiple open, lower extremity ICD Code: S81.809A - Unspecified open wound, unspecified lower leg, initial encounter Status: Acute Plan: Continue wound care Discussed with nursing team (6) Nonischemic cardiomyopathy ICD Code: I42.8 - Other cardiomyopathies Status: Acute Plan: Patient with known ejection fraction of 20%.. The patient follows up with Dr. Ko, home medications include spironolactone Coreg, isosorbide, lisinopril, furosemide ) Cardiac enzymes are likely chronically elevated and no further workup will be completed (7) Generalized weakness ICD Code: R53.1 - Weakness Status: Chronic Plan: In this frail elderly patient Continue pt Follow hypotension and adjust medications appropriately Assessment and Plan Likely discharge in a.m. back to [facility] Physician Certification 2 Midnight Certification Type: Admission for Inpatient Services Order for Inpatient Services The services are ordered in accordance with Medicare regulations or non- Medicare payer requirements, as applicable. In the case of services not specified as inpatient-only, they are appropriately provided as inpatient services in accordance with the 2-midnight benchmark. Estimated LOS (days): 2 days is the estimated time the patient will need to remain in the hospital, assuming treatment plan goals are met and no additional complications. Post-Hospital Plan: Snf/Maria Elena Webb MD Jul 13, 2017 15:07
--- NOTE | 2017-07-13 17:02 | EKG ---
Date Performed: 07/12/2017 Time Performed: 17:01:39 PTAGE: 86 years EKG: SINUS BRADYCARDIA MARKED LEFT AXIS DEVIATION POSSIBLE RIGHT VENTRICULAR CONDUCTION DELAY LE FT VENTRICULAR HYPERTROPHY AND ST-T CHANGE POSSIBLE SEPTAL MYOCARDIAL INFARCTION Compared to prior tr acing no significant change ABNORMAL ECG PREVIOUS TRACING : 04/22/2017 16.06 DOCTOR: Natalia Osei Interpretating Date/Time 07/13/2017 17:00:43
--- NOTE | 2017-07-13 17:03 | EKG ---
Date Performed: 07/13/2017 Time Performed: 03:10:13 PTAGE: 86 years EKG: SINUS BRADYCARDIA WITH OCCASIONAL SUPRAVENTRICULAR PREMATURE COMPLEXES MARKED LEFT AXIS DEV IATION INCOMPLETE RIGHT BUNDLE BRANCH BLOCK LEFT VENTRICULAR HYPERTROPHY AND ST-T CHANGE POSSIBLE SEP [place] MYOCARDIAL INFARCTION Compared to prior tracing no significant change ABNORMAL ECG PREVIOUS TRACING : 07/12/2017 21.55 DOCTOR: Natalia Osei Interpretating Date/Time 07/13/2017 17:01:14
--- NOTE | 2017-07-13 17:03 | EKG ---
Date Performed: 07/12/2017 Time Performed: 21:55:32 PTAGE: 86 years EKG: SINUS BRADYCARDIA WITH OCCASIONAL PACS MARKED LEFT AXIS DEVIATION INCOMPLETE RIGHT BUNDLE BRANCH BLOCK LEFT VENTRICULAR HYPERTROPHY AND ST-T CHANGE Compared to prior tracing no significant ch leela ABNORMAL ECG PREVIOUS TRACING : 07/12/2017 17.01 DOCTOR: Natalia Osei Interpretating Date/Time 07/13/2017 17:01:04
[2017-07-14] VITALS: BP 139/68; PULSE 57; RESP 18; TEMP 96.7; O2SAT 96
[2017-07-14 04:00] VITALS: BP 121/56; PULSE 49; RESP 18; TEMP 98.1; O2SAT 94
[2017-07-14 07:00] VITALS: BP 118/79; PULSE 71; RESP 16; TEMP 96.2; O2SAT 96
[2017-07-14] MEDS: DOCUSATE SODIUM 50 MG/SENNA 8.6 MG TAB PO SCH (10:26)
[2017-07-14] MEDS: SODIUM CHLORIDE 0.9% FLUSH 10 ML FLUSH IV FLUSH SCH (10:27)
[2017-07-14] MEDS ORDERED: FURO20TA PO (10:34)
--- NOTE | 2017-07-14 10:35 | HHI.DCPOC ---
Discharge Care Plan Diagnosis: (1) Wounds, multiple open, lower extremity (2) Nonischemic cardiomyopathy (3) Hypotension Goals to Promote Your Health * To prevent worsening of your condition and complications * To maintain your health at the optimal level Directions to Meet Your Goals Take your medications as prescribed Follow your dietary instruction Follow activity as directed Keep your appointments as scheduled Take your immunizations and boosters as scheduled If your symptoms worsen call your PCP, if no PCP go to Urgent Care Center or Emergency Room Smoking is Dangerous to Your Health. Avoid second hand smoke Call the 24-hour hour crisis hotline for domestic abuse at Maria Elena Reeder MD Jul 14, 2017 10:35
--- NOTE | 2017-07-14 10:38 | HHI.DS ---
Discharge Summary Admission Date Jul 13, 2017 at 13:07 Discharge Date: Jul 14, 2017 Admitting Diagnosis fall, troponemia (1) Hypotension ICD Code: I95.9 - Hypotension, unspecified (2) Fall ICD Code: W19.XXXA - Unspecified fall, initial encounter (3) Metabolic encephalopathy ICD Code: G93.41 - Metabolic encephalopathy (4) Elevated troponin ICD Code: R77.8 - Other specified abnormalities of plasma proteins Status: Acute (5) Wounds, multiple open, lower extremity ICD Code: S81.809A - Unspecified open wound, unspecified lower leg, initial encounter Status: Acute (6) Nonischemic cardiomyopathy ICD Code: I42.8 - Other cardiomyopathies Status: Acute (7) Generalized weakness ICD Code: R53.1 - Weakness Status: Chronic Procedures none Brief History - From Admission Patient is a very pleasant 86-year-old female with baseline cognitive impairment. Patient lives in assisted living facility and had a fall and she was promptly sent to the emergency room for further evaluation. Patient was alert and oriented at baseline and had denied any dizziness or headache prior to the fall. She remembers being sent to the emergency room because of a fall but does not remember the fall itself. She has not had any shortness of breath and had any nausea or vomiting. She does have a history of congestive heart failure with severe dilated nonischemic cardiomyopathy and takes medications for the. She has been not eating unit as usual and patient may be dehydrated. In fact she was hypotensive and had some evidence of acute kidney injury here. She also has several cytopenia which appears to be chronic. There are no skin tears with some bleeding and the left knee and the left elbow. She has multiple ecchymotic areas and at this point has been admitted for further evaluation. Overnight she did receive some IV hydration and her blood pressure and renal function have improved. Patient is coherent although little slow to recall she does answer questions appropriately which appears to be her baseline. Patient has chronically elevated cardiac enzymes which are likely due to her chronic cardiomyopathy. EKG does show some bradycardia (patient is on a beta mi) however this is not new from previous evaluations at this facility. She has denied dizziness and currently feels well. CBC/BMP: 07/13/17 0615 07/13/17 0615 Significant Findings Laboratory Tests Test 07/12/17 17:00 07/12/17 17:50 07/12/17 21:06 07/13/17 02:40 Platelet Count 89 TH/MM3 (150-450) Monocytes (%) (Auto) 10.6 % (0.0-8.0) Basophils (%) (Auto) 2.3 % (0.0-2.0) Platelet Estimate LOW (NORMAL) Prothrombin Time 12.2 SEC (9.8-11.6) Blood Urea Nitrogen 41 MG/DL (7-18) Creatinine 1.30 MG/DL (0.50-1.00) Albumin 3.2 GM/DL (3.4-5.0) Calcium Level 8.1 MG/DL (8.5-10.1) Chloride Level 97 MEQ/L (98-107) Carbon Dioxide Level 34.6 MEQ/L (21.0-32.0) Estimat Glomerular Filtration Rate 39 ML/MIN (>89) Troponin I 0.10 NG/ML (0.02-0.05) 0.10 NG/ML (0.02-0.05) 0.11 NG/ML (0.02-0.05) Test 07/13/17 06:15 White Blood Count 3.9 TH/MM3 (4.0-11.0) Platelet Count 90 TH/MM3 (150-450) Monocytes (%) (Auto) 9.3 % (0.0-8.0) Blood Urea Nitrogen 32 MG/DL (7-18) Estimat Glomerular Filtration Rate 61 ML/MIN (>89) Imaging Last Impressions Head CT 07/12/178 Signed Impressions: Service Date/Time: Wednesday, July 12, 2017 17:21 - CONCLUSION: No acute intracranial abnormality with intact calvarium. Microvascular ischemic demyelinization in deep white matter and small lacunar remote infarct in the left caudate nucleus Ulysses Godfrey MD Chest X-Ray 07/12/17 1648 Signed Impressions: Service Date/Time: Wednesday, July 12, 2017 17:09 - CONCLUSION: No acute disease. Stable chest other than clearing of the right costophrenic angle effusion Ulysses Godfrey MD Elbow X-Ray 07/12/17 0000 Signed Impressions: Service Date/Time: Wednesday, July 12, 2017 17:11 - CONCLUSION: Unremarkable examination of the left elbow. Ulysses Godfrey MD PE at Discharge Skin tears dressed and healing GENERAL: This is a well-nourished, well-developed patient, in no apparent distress. CARDIOVASCULAR: Regular rate and rhythm without murmurs, gallops, or rubs. RESPIRATORY: Clear to auscultation. Breath sounds equal bilaterally. No wheezes , rales, or rhonchi. GASTROINTESTINAL: Abdomen soft, non-tender, nondistended. Normal active bowel sounds MUSCULOSKELETAL: Extremities without clubbing, cyanosis, or edema. NEURO: Alert & Oriented x4 to person, place, time, situation. Moves all ext x4 Pt update on day of discharge Patient seen at the bedside. No new complaints and requesting to go home. No events overnight Hospital Course She is seen today in follow-up for hypotension and fall with known cardiomyopathy. Patient appeared to be over diuresed. Her Lasix was decreased and the patient did better. She had small amount of fluid administrated and her electrolytes and overall clinical presentation dehydration improved. Patient did have some wounds and skin tears related to the fall which were addressed accordingly. She had mildly elevated troponins which are chronically elevated likely due to her chronic cardiomyopathy which is known to be at about 20%. Patient continues to have dementia which is at baseline. Patient seen for these issues and discharged back to her assisted living facility Pt Condition on Discharge: Good Discharge Disposition: [facility]/SENIOR LIVING Discharge Time: <= 30 minutes Discharge Instructions DIET: Follow Instructions for: As Tolerated, No Restrictions Activities you can perform: Regular-No Restrictions New Medications: Furosemide (Furosemide) 20 Mg Tab 20 MG PO DAILY for chf, #30 TAB 0 Refills Continued Medications: Carvedilol (Coreg) 6.25 Mg Tab 6.25 MG PO Q12HR for chf, #60 TAB Fluticasone Nasal [place] (Fluticasone Nasal [place]) 50 Mcg/Act Naspr 50 MCG EACH NARE BID for Allergy Management, #1 BOTTLE 0 Refills 50 mcg/spray Fluticasone-Vilanterol Inh (Breo Ellipta Inh) 100-25 Mcg/Act Inh 1 PUFF INH DAILY, #1 INHALER 0 Refills Use daily at the same time. Isosorbide Mononitrate (Isosorbide Mononitrate) 10 Mg Tab 30 MG PO HS for Prevent Chest Pain, #60 TAB Take 2 doses 7 hours apart. Lisinopril (Lisinopril) 5 Mg Tab 5 MG PO DAILY for Blood Pressure Management, #30 TAB 0 Refills Potassium Chloride ER (Potassium Chloride ER) 20 Meq Tab 20 MEQ PO DAILY for Electrolyte Replacement, #30 TAB 0 Refills Spironolactone (Spironolactone) 25 Mg Tab 12.5 MG PO DAILY, #15 TAB 0 Refills Discontinued Medications: Furosemide (Furosemide) 40 Mg Tab 40 MG PO DAILY, #30 TAB 0 Refills Maria Elena Reeder MD Jul 14, 2017 10:38
[2017-07-14 12:00] VITALS: BP 99/60; PULSE 65; RESP 16; TEMP 96.7; O2SAT 93
--- NOTE | 2017-07-14 12:04 | HHI.FF ---
Face to Face Verification Diagnosis: (1) Nonischemic cardiomyopathy Physical Therapy Order: Evaluate and Treat, Improve ambulation Home Health Nursing Order: CHF education Wound care and dressing changes Announcer Order: To Provide: Long range planning I have seen patient Kaci Miles on 07/14/17. My clinical findings support the need for the requested home health care services because: Patient has SOB Deconditioned w/ increased weakness Med compliance is questionable I certify that my clinical findings support that this patient is homebound because: Impaired cognitive ability/safety Poor cardiac reserve Maria Elena Reeder MD Jul 14, 2017 12:04
== END 2017-07-14 14:41 | DRG 682 ==
LOC: PHED 16:36 → PHEDA 18:53 → PH3B 21:11 → OBSVTOIN 07-13 13:07
PROVIDERS: ADMIT Hospitalist; ATTEND Hospitalist
DX: N17.9 Acute kidney failure, unspecified (principal); G93.41 Metabolic encephalopathy; I95.9 Hypotension, unspecified; I11.0 Hypertensive heart disease with heart failure; I42.0 Dilated cardiomyopathy; I50.9 Heart failure, unspecified; E86.0 Dehydration; F03.90 Unspecified dementia, unspecified severity, without behavioral disturbance, psychotic disturbance, mood disturbance, and anxiety; R00.1 Bradycardia, unspecified; I25.10 Atherosclerotic heart disease of native coronary artery without angina pectoris; R74.8 Abnormal levels of other serum enzymes; M79.7 Fibromyalgia; I08.0 Rheumatic disorders of both mitral and aortic valves; S81.012A Laceration without foreign body, left knee, initial encounter; W19.XXXA Unspecified fall, initial encounter; Y92.099 Unspecified place in other non-institutional residence as the place of occurrence of the external cause; Z85.3 Personal history of malignant neoplasm of breast; Z88.2 Allergy status to sulfonamides; Z92.3 Personal history of irradiation; Z95.5 Presence of coronary angioplasty implant and graft
CPT/HCPCS: 70450; 71010; 73080; 80048; 80053; 81001; 82550; 84484; 85025; 85610; 85730; 93005; 96360; 96372; G0378; J1644; J7040

== ENCOUNTER 2017-07-21 10:58 | Observation (INO) | payer MEDICARE, OTHER ==
[2017-07-21] VITALS (7 sets, daily range): BP systolic 94–132; BP diastolic 50–69; PULSE 57–83; RESP 18; TEMP 97–98.5; O2SAT 93–98
[~2017-07-21] VITALS: Ht 162.6 cm; Wt 51.6 kg
[~2017-07-21 10:58] MED LIST changes: -ADVA250A INH; +FLUT1INH INH; -FURO1TAB60 PO; +FURO20TA PO; -FURO40TA PO; +ISOS10TA3 PO; -METO25TA3 PO; +SPIR25TA PO
[2017-07-21] MEDS ORDERED: IOHEXOL 350 MG/ML 10 ML VIAL (for RAD DIAG) IVCONTRAST ONE (10:59)
[2017-07-21] MEDS ORDERED: SODIUM CHLORIDE 0.9% FLUSH 10 ML FLUSH IVF PRN (11:15)
--- NOTE | 2017-07-21 11:15 | PD ---
HPI Chief Complaint: CP Time Seen by Provider: 11:07 Travel History International Travel<30 days: No Contact w/Intl Traveler<30days: No Traveled to known affect area: No History of Present Illness HPI sent from [place] due to intermittent cp, nonrad, currently 0/10, ems gave asa 162, PFSH Past Medical History Hx Anticoagulant Therapy: No Arthritis: No Asthma: No Blood Disorders: No Anxiety: Yes Depression: No Heart Rhythm Problems: No Cancer: Yes (breast) Cardiovascular Problems: Yes High Cholesterol: Yes Chemotherapy: No (CURRENTLY NONE) Chest Pain: No Congestive Heart Failure: Yes COPD: Yes Coronary Artery Disease: Yes Diabetes: No Diminished Hearing: No Endocrine: No Gastrointestinal Disorders: No Genitourinary: No Hypertension: Yes Immune Disorder: No Implanted Vascular Access Dvce: No Musculoskeletal: Yes (Fibromyalga) Neurologic: No Psychiatric: No Reproductive: No Respiratory: Yes Immunizations Current: Yes Radiation Therapy: Yes Sleep Apnea: No Thyroid Disease: No Menopausal: Yes Past Surgical History Abdominal Surgery: No Appendectomy: Yes Cardiac Surgery: Yes (aortic anuerism) Coronary Stent: Yes Ear Surgery: No Endocrine Surgery: No Eye Surgery: Yes Genitourinary Surgery: No Gynecologic Surgery: Yes (lump ectomy and hysterctomy) Hysterectomy: Yes Oral Surgery: No Thoracic Surgery: No Tonsillectomy: Yes Other Surgery: Yes (right lumpectomy) Social History Alcohol Use: Yes (Occ.) Tobacco Use: No Substance Use: No Allergies-Medications (Allergen,Severity, Reaction): Coded Allergies: Sulfa (Sulfonamide Antibiotics) (Unverified Allergy, Unknown, LIGHTHEADED , 07/12/17) Reported Meds & Prescriptions Reported Meds & Active Scripts Active Furosemide 20 Mg Tab 20 Mg PO DAILY Coreg (Carvedilol) 6.25 Mg Tab 6.25 Mg PO Q12HR Reported Spironolactone 25 Mg Tab 12.5 Mg PO DAILY Isosorbide Mononitrate 10 Mg Tab 30 Mg PO HS Take 2 doses 7 hours apart. Breo Ellipta Inh (Fluticasone/Vilanterol) 100-25 Mcg/Act Inh 1 Puff INH DAILY Use daily at the same time. Lisinopril 5 Mg Tab 5 Mg PO DAILY Potassium Chloride ER (Potassium Chloride) 20 Meq Tab 20 Meq PO DAILY Fluticasone Nasal [place] 50 Mcg/Act Naspr 50 Mcg EACH NARE BID 50 mcg/spray Review of Systems Except as stated in HPI: all other systems reviewed are Neg Cardiovascular: Positive: Chest Pain or Discomfort Physical Exam Narrative GENERAL: SKIN: Warm and dry. HEAD: Atraumatic. Normocephalic. EYES: Pupils equal and round. No scleral icterus. No injection or drainage. ENT: No nasal bleeding or discharge. Mucous membranes pink and moist. NECK: Trachea midline. No JVD. CARDIOVASCULAR: Regular rate and rhythm. RESPIRATORY: No accessory muscle use. Clear to auscultation. Breath sounds equal bilaterally. GASTROINTESTINAL: Abdomen soft, non-tender, nondistended. MUSCULOSKELETAL: Extremities without clubbing, cyanosis, or edema. No obvious deformities. NEUROLOGICAL: Awake and alert. No obvious cranial nerve deficits. Motor grossly within normal limits. Five out of 5 muscle strength in the arms and legs. Normal speech. PSYCHIATRIC: Appropriate mood and affect; insight and judgment normal. Data Data Last Documented VS Vital Signs Date Time Temp Pulse Resp B/P (MAP) Pulse Ox O2 Delivery O2 Flow Rate FiO2 07/21/17 11:14 97 Room Air 07/21/17 11:14 83 18 102/67 (79) 07/21/17 11:06 98.5 Orders Orders Electrocardiogram (07/21/17 11:07) B-Type Natriuretic Peptide (07/21/17 11:07) Ckmb (Isoenzyme) Profile (07/21/17 11:07) Complete Blood Count With Diff (07/21/17 11:07) Comprehensive Metabolic Panel (07/21/17 11:07) Prothrombin Time / Inr (Pt) (07/21/17 11:07) Act Partial Throm Time (Ptt) (07/21/17 11:07) Troponin I (07/21/17 11:07) Lipase (07/21/17 11:07) Chest, Single Ap (07/21/17 11:07) Ecg Monitoring (07/21/17 11:07) Bilateral Bp Monitoring (07/21/17 11:07) Iv Access Insert/Monitor (07/21/17 11:07) Oximetry (07/21/17 11:07) Oxygen Administration (07/21/17 11:07) Sodium Chloride 0.9% Flush (Ns Flush) (07/21/17 11:15) Ct Pulmonary Angiogram (07/21/17 11:07) Iohexol 350 Inj (Omnipaque 350 Inj) (07/21/17 10:59) Admit Order (Ed Use Only) (07/21/17 13:58) Labs Laboratory Tests Test 07/21/17 11:20 White Blood Count 5.7 TH/MM3 Red Blood Count 4.52 MIL/MM3 Hemoglobin 14.9 GM/DL Hematocrit 44.1 % Mean Corpuscular Volume 97.5 FL Mean Corpuscular Hemoglobin 33.0 PG Mean Corpuscular Hemoglobin Concent 33.8 % Red Cell Distribution Width 14.0 % Platelet Count 121 TH/MM3 Mean Platelet Volume 8.6 FL Neutrophils (%) (Auto) 75.1 % Lymphocytes (%) (Auto) 14.5 % Monocytes (%) (Auto) 8.5 % Eosinophils (%) (Auto) 0.8 % Basophils (%) (Auto) 1.1 % Neutrophils # (Auto) 4.3 TH/MM3 Lymphocytes # (Auto) 0.8 TH/MM3 Monocytes # (Auto) 0.5 TH/MM3 Eosinophils # (Auto) 0.0 TH/MM3 Basophils # (Auto) 0.1 TH/MM3 CBC Comment DIFF FINAL Differential Comment Prothrombin Time 11.5 SEC Prothromb Time International Ratio 1.0 RATIO Activated Partial Thromboplast Time 26.8 SEC Blood Urea Nitrogen 33 MG/DL Creatinine 1.18 MG/DL Random Glucose 130 MG/DL Total Protein 7.4 GM/DL Albumin 3.6 GM/DL Calcium Level 8.9 MG/DL Alkaline Phosphatase 79 U/L Aspartate Amino Transf (AST/SGOT) 29 U/L Alanine Aminotransferase (ALT/SGPT) 31 U/L Total Bilirubin 0.6 MG/DL Sodium Level 137 MEQ/L Potassium Level 4.2 MEQ/L Chloride Level 98 MEQ/L Carbon Dioxide Level 32.0 MEQ/L Anion Gap 7 MEQ/L Estimat Glomerular Filtration Rate 43 ML/MIN Total Creatine Kinase 55 U/L Troponin I 0.13 NG/ML B-Type Natriuretic Peptide 613 PG/ML Lipase 175 U/L [facility] Medical Decision Making Medical Screen Exam Complete: Yes Emergency Medical Condition: Yes Medical Record Reviewed: Yes Interpretation(s) NSR, 85, FIRST DEGREE AV BLOCK, IRBBB, LVH, INVERTED T WAVES I/AVL Differential Diagnosis stemi v nonstemi v chf v ptx v pna Narrative Course patient was veery difficult to assess due to her dementia, thus she was approached as a minor who required thorough work up and no value was applied to her provided "hpi" since when she is asked why she is in hospital she just shrugs her shoulders....during the thorough evaluation patient was found to be in chf, which is possilby responsible for the cardiac ischemic changes c/w nonstemi on labs and ekg, patient required admission and further treatment. Critical Care Narrative CRITICAL CARE NOTE: With evaluation of the patient, labs, EKG, receipt of radiologic studies, administration of medications, reevaluation the patient and discussion of the patient with the admitting physicians, the total critical care time was [45] minutes. Time to perform other separately billable procedures was not included in the critical care time. Diagnosis Primary Impression: Elevated troponin Additional Impression: CHF exacerbation Qualified Codes: I50.9 - Heart failure, unspecified Admitting Information Admitting Physician Requests: Israel Flores MD Jul 21, 2017 11:15
[2017-07-21 11:37] LABS: AUTOMATED NEUTROPHIL # 4.3 TH/MM3 (1.8-7.7); BASOPHIL # 0.1 TH/MM3 (0-0.2); BASOPHIL % 1.1 % (0.0-2.0); EOSINOPHIL % 0.8 % (0.0-4.0); HEMATOCRIT 44.1 % (35.0-46.0); HEMO FLAGS DIFF FINAL; LYMPH % 14.5 % (9.0-44.0); LYMPHOCYTE # 0.8 TH/MM3 (1.0-4.8); MEAN CELL VOLUME 97.5 FL (80.0-100.0); MEAN CORPUSCULAR HGB CONC 33.8 % (32.0-36.0); MONO % 8.5 % (0.0-8.0); NEUT % 75.1 % (16.0-70.0); PLATELET COUNT 121 TH/MM3 (150-450); RED BLOOD COUNT 4.52 MIL/MM3 (4.00-5.30); WHITE BLOOD COUNT 5.7 TH/MM3 (4.0-11.0)
[2017-07-21 11:46] LABS: APTT (PATIENT) 26.8 SEC (24.3-30.1); PROTHROMBIN TIME - PATIENT 11.5 SEC (9.8-11.6)
[2017-07-21 12:32] LABS: ALKALINE PHOSPHATASE 79 U/L (45-117); ALT (GPT) 31 U/L (10-53); ANION GAP 7 MEQ/L (5-15); AST (GOT) 29 U/L (15-37); BLOOD UREA NITROGEN 33 MG/DL (7-18); CHLORIDE 98 MEQ/L (98-107); GLOMERULAR FILTRATION RATE 43 ML/MIN (>89); SODIUM (NA) 137 MEQ/L (136-145); TOTAL BILIRUBIN ADULT 0.6 MG/DL (0.2-1.0)
--- NOTE | 2017-07-21 12:34 | RADRPT ---
EXAM DATE/TIME: 07/21/2017 11:26 [facility] COMPARISON: CHEST SINGLE AP, July 12, 2017, 17:09. INDICATIONS : Confusion, syncope, short of breath. MEDICAL HISTORY : Congestive heart failure. Chronic obstructive pulmonary disease. SURGICAL HISTORY : Abdominal aortic aneurysm repair. Hysterectomy. Coronary stent. Appendectomy. Right lumpectomy. ENCOUNTER: Initial ACUITY: 1 day PAIN SCORE: 0/10 LOCATION: Bilateral chest FINDINGS: The heart remains enlarged. Aortic stent graft is again noted and is unchanged compared to the previ ous examination. Stent is also noted in the expected region of the great vessels and is stable. The lungs are clear. Degenerative changes and scoliosis of the thoracic spine are noted. CONCLUSION: 1. Cardiomegaly. 2. No acute focal pulmonary infiltrate or pulmonary vascular congestion. Suraj Preciado MD on July 21, 2017 at 12:14 Board Certified Radiologist. This report was verified electronically.
[2017-07-21 12:44] LABS: CREATINE KINASE 55 U/L (26-192); POTASSIUM 4.2 MEQ/L (3.5-5.1)
--- NOTE | 2017-07-21 13:57 | HHI.HP ---
[facility] Service Family Medicine Primary Care Physician Edouard Dos Santos MD Admission Diagnosis Diagnoses: International Travel<30 Days: No Contact w/Intl Traveler<30days: No Known Affected Area: No History of Present Illness Ms. Miles is a pleasant 86 yo WF with PMH of CHF, thoracic AA, dementia, h/o breast cancer, COPD, HLD, CAD presenting to the ED with CP/SOB. Patient states that she "isn't quite sure" why she is in the ED today, but does complain of chest discomfort. She denies chest pain, but describes it as "chest congestion" substernally. Does not describe it as sharp or burning pain, but does say it feels like pressure. No radiating pain to neck, arm or abdomen. She states that she occasionally gets SOB and felt this way today. She says usually happens with activity and improves with rest/oxygen. She stays at a local fdc and stated it would be ok to contact them or her family for more history. In discussing with the fdc staff, patient was her usual self until earlier today when she was in her wheelchair and suddenly clutched her chest and complained of CP. BP was recorded at 185/110 and she was diaphoretic. EMS gave Asa 162 en route to ER. (Andrea Hicks MD R1) Review of Systems Constitutional: DENIES: Fever, Chills, Dizziness Eyes: DENIES: Blurred vision Ears, nose, mouth, throat: DENIES: Throat pain, Running Nose Respiratory: COMPLAINS OF: Shortness of breath, DENIES: Cough Cardiovascular: COMPLAINS OF: Palpitations, Dyspnea on Exertion, DENIES: Chest pain, Syncope Gastrointestinal: DENIES: Abdominal pain, Black stools, Bloody stools, Constipation, Diarrhea, Nausea, Vomiting Musculoskeletal: DENIES: Joint pain, Muscle aches Integumentary: DENIES: Pruritus, Rash Neurologic: DENIES: Headache Psychiatric: COMPLAINS OF: Confusion (chronic) (Andrea Hicks MD R1) Past Family Social History Past Medical History per chart review MH of CHF thoracic AA mild dementia h/o breast cancer COPD HLD CAD Past Surgical History per chart review Aortic aneurysm surgery Cardiac catheterization with stent placement Hysterectomy Appendectomy Tonsillectomy Right breast lumpectomy Reported Medications Reported Meds & Active Scripts Active Furosemide 20 Mg Tab 20 Mg PO DAILY Coreg (Carvedilol) 6.25 Mg Tab 6.25 Mg PO Q12HR Reported Spironolactone 25 Mg Tab 12.5 Mg PO DAILY Isosorbide Mononitrate 10 Mg Tab 30 Mg PO HS Take 2 doses 7 hours apart. Breo Ellipta Inh (Fluticasone/Vilanterol) 100-25 Mcg/Act Inh 1 Puff INH DAILY Use daily at the same time. Lisinopril 5 Mg Tab 5 Mg PO DAILY Potassium Chloride ER (Potassium Chloride) 20 Meq Tab 20 Meq PO DAILY Fluticasone Nasal [place] 50 Mcg/Act Naspr 50 Mcg EACH NARE BID 50 mcg/spray (Andrea Hicks MD R1) Allergies: Coded Allergies: Sulfa (Sulfonamide Antibiotics) (Unverified Allergy, Unknown, LIGHTHEADED , 07/12/17) Family History per chart review HTN Social History Lives at local fdc Occasional alcohol use, never tobacco, never illicit drugs (Andrea Hicks MD R1) Physical Exam Vital Signs Vital Signs Date Time Temp Pulse Resp B/P (MAP) Pulse Ox O2 Delivery O2 Flow Rate FiO2 07/21/17 11:14 97 Room Air 07/21/17 11:14 83 18 102/67 (79) 97 Room Air 07/21/17 11:14 97 Room Air 07/21/17 11:14 84 18 97 Room Air 07/21/17 11:06 98.5 83 18 102/68 (79) 97 Physical Exam GENERAL: This is an elderly, non cachectic WF seen resting in bed comfortably under several blankets. SKIN: Numerous ecchymoses noted on extremities, skin is easily friable and thin. 3 cm grade 1 ulcer noted on lateral left leg just distal to knee. Bandage on ulcer was clean and dry. No bleeding or discharge from wound. No ulcers appreciated on back/sacral region HEAD: Atraumatic. Normocephalic. EYES: Pupils equal round and reactive. Extraocular motions intact. No scleral icterus. No injection or drainage. ENT: Nose without bleeding, purulent drainage or septal hematoma. Throat without erythema, tonsillar hypertrophy or exudate. Uvula midline. Airway patent. NECK: Trachea midline. No JVD or lymphadenopathy. Supple, nontender, no meningeal signs. CARDIOVASCULAR: Slightly bradycardic in the 60's. Regular rhythm without murmurs , gallops, or rubs. RESPIRATORY: Clear to auscultation. Breath sounds equal bilaterally. No wheezes , rales, or rhonchi. GASTROINTESTINAL: Abdomen soft, non-tender, nondistended. No hepato-splenomegaly , or palpable masses. No guarding. MUSCULOSKELETAL: Extremities without clubbing, cyanosis, or edema. No joint tenderness, effusion, or edema noted. No calf tenderness. NEUROLOGICAL: Awake and alert. Oriented x3 (to person, place and time). Cranial nerves II through XII intact. Motor and sensory grossly within normal limits. Normal speech, answered questions appropriately with normal affect. Laboratory Laboratory Tests Test 07/21/17 11:20 White Blood Count 5.7 Red Blood Count 4.52 Hemoglobin 14.9 Hematocrit 44.1 Mean Corpuscular Volume 97.5 Mean Corpuscular Hemoglobin 33.0 Mean Corpuscular Hemoglobin Concent 33.8 Red Cell Distribution Width 14.0 Platelet Count 121 Mean Platelet Volume 8.6 Neutrophils (%) (Auto) 75.1 Lymphocytes (%) (Auto) 14.5 Monocytes (%) (Auto) 8.5 Eosinophils (%) (Auto) 0.8 Basophils (%) (Auto) 1.1 Neutrophils # (Auto) 4.3 Lymphocytes # (Auto) 0.8 Monocytes # (Auto) 0.5 Eosinophils # (Auto) 0.0 Basophils # (Auto) 0.1 CBC Comment DIFF FINAL Differential Comment Prothrombin Time 11.5 Prothromb Time International Ratio 1.0 Activated Partial Thromboplast Time 26.8 Blood Urea Nitrogen 33 Creatinine 1.18 Random Glucose 130 Total Protein 7.4 Albumin 3.6 Calcium Level 8.9 Alkaline Phosphatase 79 Aspartate Amino Transf (AST/SGOT) 29 Alanine Aminotransferase (ALT/SGPT) 31 Total Bilirubin 0.6 Sodium Level 137 Potassium Level 4.2 Chloride Level 98 Carbon Dioxide Level 32.0 Anion Gap 7 Estimat Glomerular Filtration Rate 43 Total Creatine Kinase 55 Troponin I 0.13 B-Type Natriuretic Peptide 613 Lipase 175 (Andrea Hicks MD R1) Result Diagram: 07/21/17 1120 07/21/17 1120 Imaging Last 24 hours Impressions Chest X-Ray 07/21/17 1107 Signed Impressions: Service Date/Time: July 11:26 - CONCLUSION: 1. Cardiomegaly. 2. No acute focal pulmonary infiltrate or pulmonary vascular congestion. Suraj Preciado MD CT Angiography 07/21/17 1107 Signed Impressions: Service Date/Time: July 13:32 - CONCLUSION: There is no evidence for PE for technique. Phoebe Barba MD (Andrea Hicks MD R1) Caparacelii VTE Risk Assessment Caprini VTE Risk Assessment: No/Low Risk (score <= 1) Caprini Risk Assessment Model Point Value = 1 Point Value = 2 Point Value = 3 Point Value = 5 Age 41-60 Minor surgery BMI > 25 kg/m2 Swollen legs Varicose veins or History of unexplained or recurrent spontaneous Oral contraceptives or hormone replacement Sepsis (< 1 month) Serious lung disease, including pneumonia (< 1 month) Abnormal pulmonary function Acute myocardial infarction Congestive heart failure (< 1 month) History of inflammatory bowel disease Medical patient at bed rest Age 61-74 Arthroscopic surgery Major open surgery (> 45 min) Laparoscopic surgery (> 45 min) Malignancy Confined to bed (> 72 hours) Immobilizing plaster cast Central venous access Age >= 75 History of VTE Family history of VTE Factor V Leiden Prothrombin [id number] Lupus anticoagulant Anticardiolipin antibodies Elevated serum homocysteine Heparin-induced thrombocytopenia Other congenital or acquired thrombophilia Stroke (< 1 month) Elective arthroplasty Hip, pelvis, or leg fracture Acute spinal cord injury (< 1 month) Prophylaxis Regimen Total Risk Factor Score Risk Level Prophylaxis Regimen 0-1 Low Early ambulation 2 Moderate Order ONE of the following: *Sequential Compression Device (SCD) *Heparin 5000 units SQ BID 3-4 Higher Order ONE of the following medications: *Heparin 5000 units SQ TID *Enoxaparin/Lovenox 40 mg SQ daily (WT < 150 kg, CrCl > 30 mL/min) *Enoxaparin/Lovenox 30 mg SQ daily (WT < 150 kg, CrCl > 10-29 mL/min) *Enoxaparin/Lovenox 30 mg SQ BID (WT < 150 kg, CrCl > 30 mL/min) AND/OR *Sequential Compression Device (SCD) 5 or more Highest Order ONE of the following medications: *Heparin 5000 units SQ TID (Preferred with Epidurals) *Enoxaparin/Lovenox 40 mg SQ daily (WT < 150 kg, CrCl > 30 mL/min) *Enoxaparin/Lovenox 30 mg SQ daily (WT < 150 kg, CrCl > 10-29 mL/min) *Enoxaparin/Lovenox 30 mg SQ BID (WT < 150 kg, CrCl > 30 mL/min) AND *Sequential Compression Device (SCD) (Andrea Hicks MD R1) Assessment and Plan Assessment and Plan 86 yo WF with PMH of CHF, CAD, thoracic aortic aneurysm, HTN, COPD being admitted to observation for chest pain, SOB, lab trends. Code Status DNR Discussed Condition With Dr. Quinonez (Andrea Hicks MD R1) Attending Attestation Patient seen, examined, and discussed with resident team. I agree with assessment and management as documented and discussed with me. PT seen in ER. She denies chest pain or shortness of breath at the time of my exam. She does report a h/o intermittent chest pressure and SOB with exertion, reporting that she "moves slow" to make sure she does not experience the chest pressure. She says the diaphoresis and palpitations she felt briefly today (minutes only) were different for her. Monitor for ACS via serial enzymes/ekgs. Wells criteria low for PE and CTA was negative. Monitor renal function, as pt received dye for CTA. (Dorcas Martinez MD) Problem List: (1) Chest pain ICD Codes: R07.9 - Chest pain, unspecified Status: Acute Plan: No acute chest pain in ED, fdc staff reported episode of diaphoresis, CP, elevated BP - EKG not showing ST changes, no significant change compared to EKG on 07/13 - repeating q6hr x2 - Troponin 0.13, 0.14, - h/o elevated troponin to this level on previous admission (0.10 - 0.11 in June) . Has h/o CHF, KIRK which may be cause of elevation - CXR showed cardiomegaly, no acute pulmonary infiltrate or pulmonary vascular congestion, aortic stent graft unchanged from prior imaging - Not overly concerned for ACS at this time. Will continue to monitor overnight (2) Shortness of breath ICD Codes: R06.02 - Shortness of breath Status: Acute Plan: Patient complaining of "chest congestion" and occasional SOB on exertion - O2 sats 97% on RA - Lungs CTAB on admission - Wells score of 1.5 - low likelihood of pulmonary embolism - CTA in ED showed no evidence for PE, patent aortic stent - No signs of CHF exacerbation, pneumonia on imaging - Does not meet SIRS criteria, no need for blood cultures at this time (3) KIRK (acute kidney injury) ICD Codes: N17.9 - Acute kidney failure, unspecified Status: Acute Plan: Cr on admission 1.18 (estimated GFR 43) - MMM on exam, did not appear volume down - Has had elevated Cr on prior admissions to 1.33, but most recent Cr was 0.88 in 8 days ago - Giving maintenance IVFs (100 mL/hr NS) - Repeat BMP tomorrow AM (4) CHF (congestive heart failure) ICD Codes: I50.9 - Heart failure, unspecified Status: Chronic Plan: Prior diagnosis of CHF, no signs of exacerbation at this time - Most recent echocardiogram in 2016 showed EF 20-25 % - on Carvedilol 6.25 mg BID, Lasix 20mg qd, Spironolactone 12.5mg qd, Lisinopril 5mg po qd, K 20mEq - BNP on admission 613, this is lower than her last several BNPs in April/March of this year (all over 4000) - repeat BNP tomorrow AM (5) Hypertension ICD Codes: I10 - Essential (primary) hypertension Status: Chronic Plan: Medications as above Was mildly hypotensive on admission (102/67), will hold meds for SBP < 100 or DBP < 60 (6) FEN Status: Acute Plan: Regular diet Maintenance IVF (NS 100mL/hr) Heparin for DVT prophylaxis (Andrea Hicks MD R1) Problem Qualifiers (1) Chest pain: Qualified Codes: R07.9 - Chest pain, unspecified (2) CHF (congestive heart failure): Qualified Codes: I50.9 - Heart failure, unspecified (3) Hypertension: Qualified Codes: I10 - Essential (primary) hypertension Andrea Hicks MD R1 Jul 21, 2017 13:57 Dorcas Martinez MD Jul 21, 2017 21:07
--- NOTE | 2017-07-21 14:05 | RADRPT ---
EXAM DATE/TIME: 07/21/2017 13:32 [facility] COMPARISON: No previous studies available for comparison. INDICATIONS : Shortness of breath for many months IV CONTRAST: 50 cc Omnipaque 350 (iohexol) IV RADIATION DOSE: 4.66 CTDIvol (mGy) MEDICAL HISTORY : Cardiovascular disease. Hypertension. Carcinoma, breast.CHF SURGICAL HISTORY : Right lumpectomy ENCOUNTER: Initial ACUITY: 4 - 6 months PAIN SCALE: 0/10 LOCATION: chest TECHNIQUE: Volumetric scanning of the chest was performed using a pulmonary embolism protocol MIP images were re constructed. Using automated exposure control and adjustment of the mA and/or kV according to patien t size, radiation dose was kept as low as reasonably achievable to obtain optimal diagnostic quality images. DICOM format image data is available electronically for review and comparison. Follow-up recommendations for detected pulmonary nodules are based at a minimum on nodule size and pa tient risk factors according to Fleischner Society Guidelines. FINDINGS: The lungs are clear without infiltrate, nodule, or mass except for slight scarring in the left lower lobe and right middle lobe. There is no evidence for PE for technique. Aortic stent is again identif ied There is no pleural effusion. No appreciable pathological adenopathy is seen within the mediast inum. CONCLUSION: There is no evidence for PE for technique. Phoebe Barba MD on July 21, 2017 at 14:01 Board Certified Radiologist. This report was verified electronically.
[2017-07-21] MEDS ORDERED: ACETAMINOPHEN 500 MG CPLT PO PRN (14:45)
[2017-07-21] MEDS ORDERED: NITROGLYCERIN 0.4 MG SL 25 TABS/BTL SL PRN (14:45)
[2017-07-21] MEDS ORDERED: ONDANSETRON ODT 4 MG TAB PO PRN (15:00)
[2017-07-21] MEDS ORDERED: DOCUSATE SODIUM 50 MG/SENNA 8.6 MG TAB PO PRN (15:00)
[2017-07-21] MEDS ORDERED: PILL SPLITTER OTHER PRN (15:30)
[2017-07-21] MEDS: HEPARIN SODIUM - SQ 10,000 UNITS/ML VIAL SQ SCH (15:55)
[2017-07-21] MEDS: SODIUM CHLOR 0.9% 1000 ML INJ 1,000 ML IV SCH (15:55)
[2017-07-21] MEDS: CARVEDILOL 6.25 MG TAB PO SCH (20:00)
[2017-07-21] MEDS ORDERED: ISOSORBIDE MONONITRATE 20 MG TAB PO SCH (21:00)
[2017-07-22] VITALS: BP 112/75; PULSE 79; RESP 18; TEMP 98.7; O2SAT 94
[2017-07-22] MEDS: SODIUM CHLOR 0.9% 1000 ML INJ 1,000 ML IV SCH ×2 (00:31→09:33)
[2017-07-22] MEDS: HEPARIN SODIUM - SQ 10,000 UNITS/ML VIAL SQ SCH ×2 (00:37→08:37)
[2017-07-22 04:00] VITALS: BP 100/54; PULSE 69; RESP 20; TEMP 98.3; O2SAT 96
[2017-07-22 07:45] LABS: HEMATOCRIT 39.3 % (35.0-46.0); MEAN CELL VOLUME 96.7 FL (80.0-100.0); MEAN CORPUSCULAR HEMOGLOBIN 32.7 PG (27.0-34.0); MEAN CORPUSCULAR HGB CONC 33.8 % (32.0-36.0); PLATELET COUNT 97 TH/MM3 (150-450); RED BLOOD COUNT 4.06 MIL/MM3 (4.00-5.30); RED CELL DISTRIBUTION WIDTH 13.9 % (11.6-17.2); WHITE BLOOD COUNT 5.5 TH/MM3 (4.0-11.0)
[2017-07-22 07:59] LABS: BICARBONATE 29.4 MEQ/L (21.0-32.0); POTASSIUM 4.1 MEQ/L (3.5-5.1)
[2017-07-22 08:00] VITALS: PULSE 72
[2017-07-22 08:00] LABS: REVIEW FLAG FINAL
[2017-07-22 08:07] VITALS: BP 107/58; PULSE 72; RESP 18; TEMP 97.9; O2SAT 95
[2017-07-22] MEDS: CARVEDILOL 6.25 MG TAB PO SCH (08:37)
[2017-07-22] MEDS ORDERED: LISINOPRIL 5 MG TAB PO SCH (09:00)
[2017-07-22] MEDS ORDERED: SPIRONOLACTONE 25 MG TAB PO SCH (09:00)
[2017-07-22] MEDS ORDERED: FUROSEMIDE 20 MG TAB PO SCH (09:00)
[2017-07-22] MEDS ORDERED: POTASSIUM CHLORIDE 20 MEQ CONTROLLED RELEASE TAB PO SCH (09:00)
[2017-07-22] MEDS ORDERED: FLUTICASONE 100 MCG/VILANTEROL 25 MCG INHALER INH SCH (09:00)
--- NOTE | 2017-07-22 09:41 | PD.WCN.NOT ---
Wound Consult Description: Consult placed for wound management of ulcer just distal to lateral left knee per JULIETA Hicks. Communicated with: RN Recommendation: Leave [facility] Additional Information: Patient seen on 4 for left leg wound per consult. Dressing of rolled gauze and Xeroform removed from lateral left distal knee to reveal intact skin with 2 closed wounds. Bilateral lower extremities noted with hemosideran staining otherwise unremarkable. Recommend to leave left leg open to air. Shelbie Coulter [facility] Jul 22, 2017 09:41
[2017-07-22] MEDS ORDERED: INFLUENZA VIRUS VACCINE (QUADRIVALENT) 0.5 ML SYR IM ONE (10:00)
[2017-07-22 10:19] VITALS: O2SAT 98
--- NOTE | 2017-07-22 10:21 | HHI.DCPOC ---
Discharge Care Plan Diagnosis: (1) CHF (congestive heart failure) (2) Chest pain (3) Shortness of breath Goals to Promote Your Health * To prevent worsening of your condition and complications * To maintain your health at the optimal level Directions to Meet Your Goals Take your medications as prescribed Follow your dietary instruction Follow activity as directed Keep your appointments as scheduled Take your immunizations and boosters as scheduled If your symptoms worsen call your PCP, if no PCP go to Urgent Care Center or Emergency Room Smoking is Dangerous to Your Health. Avoid second hand smoke Call the 24-hour hour crisis hotline for domestic abuse at Andrea Hicks MD R1 Jul 22, 2017 10:21
--- NOTE | 2017-07-22 10:24 | HHI.FPPN ---
Subjective Remarks Ms. Miles was evaluate by medicine team today on rounds. No acute events overnight, vitals were stable. Patient denies CP this AM. States she is "always a little short of breath" but does not complain of any worsening right now. She denies N/V/D. States her daughter came by and saw her last night - plans for her [facility] to [facility] the [facility] during [facility]. (Andrea Hicks MD R1) Objective Vitals Vital Signs Date Time Temp Pulse Resp B/P (MAP) Pulse Ox O2 Delivery O2 Flow Rate FiO2 07/22/17 08:07 97.9 72 18 107/58 (74) 95 07/22/17 08:00 98 Room Air 07/22/17 04:00 98.3 69 20 100/54 (69) 96 07/22/17 04:00 Room Air 07/22/17 00:00 98.7 79 18 112/75 (87) 94 07/22/17 00:00 Room Air 07/21/17 20:00 Room Air 07/21/17 19:55 97.3 83 18 94/50 (65) 95 07/21/17 19:07 97.0 76 18 105/61 (76) 93 07/21/17 17:48 07/21/17 17:30 57 18 132/63 (86) 97 Room Air 07/21/17 15:14 97 21 07/21/17 14:30 73 18 123/69 (87) 98 Room Air 07/21/17 11:14 97 Room Air 07/21/17 11:14 83 18 102/67 (79) 97 Room Air 07/21/17 11:14 97 Room Air 07/21/17 11:14 84 18 97 Room Air 07/21/17 11:06 98.5 83 18 102/68 (79) 97 I/O 07/21/17 07/21/17 07/21/17 07/22/17 07/22/17 07/22/17 07:00 15:00 23:00 07:00 15:00 23:00 Intake Total 420 ml Output Total 650 ml Balance -230 ml Intake Oral 420 ml Output Urine Total 650 ml # Bowel Movements 1 (Andrea Hicks MD R1) Result Diagram: 07/22/1772407/22/17724 Objective Remarks GENERAL: This is an elderly, non cachectic WF seen resting in bed comfortably in NAD SKIN: Numerous ecchymoses noted on extremities, skin is easily friable and thin. No ulcers appreciated on back/sacral region HEAD: Atraumatic. Normocephalic. EYES: Pupils equal round and reactive. Extraocular motions intact. No scleral icterus. No injection or drainage. ENT: No signs of hemorrhage. Airway patent. NECK: Trachea midline. No JVD CARDIOVASCULAR: Regular rate, regular rhythm without murmurs, gallops, or rubs. RESPIRATORY: Clear to auscultation. Breath sounds equal bilaterally. No wheezes , rales, or rhonchi. GASTROINTESTINAL: Abdomen soft, non-tender, nondistended. No hepato-splenomegaly , or palpable masses. No guarding. MUSCULOSKELETAL: Extremities without clubbing, cyanosis, or edema. No joint tenderness, effusion, or edema noted. NEUROLOGICAL: Awake and alert. Cranial nerves II through XII intact. Motor and sensory grossly within normal limits. Normal speech, answered questions appropriately with normal affect. (Andrea Hicks MD R1) A/P Assessment and Plan 86 yo WF with PMH of CHF, CAD, thoracic aortic aneurysm, HTN, COPD being admitted to observation for chest pain, SOB, lab trends. Discharge Planning Ok to D[facility]C to [facility]. (Andrea Hicks MD R1) Attending Attestation Patient seen, examined, and discussed with resident team. I agree with assessment and management as documented and discussed with me. Pt without complaints today. Troponin stable. Discharge home today. (Dorcas Martinez MD) Problem List: (1) Chest pain ICD Codes: R07.9 - Chest pain, unspecified Status: Acute Plan: No acute chest pain in ED, [facility] staff reported episode of diaphoresis, CP, elevated BP - EKG not showing ST changes, no significant change compared to EKG on 07/13 - Troponin 0.13, 0.14, 0.14 - h/o elevated troponin to this level on previous admission (0.10 - 0.11 in June) . Has h/o CHF, KIRK which may be cause of elevation - CXR showed cardiomegaly, no acute pulmonary infiltrate or pulmonary vascular congestion, aortic stent graft unchanged from prior imaging - No concern for ACS at this time. Ok to discharge (2) Shortness of breath ICD Codes: R06.02 - Shortness of breath Status: Acute Plan: Patient complaining of "chest congestion" and occasional SOB on exertion - O2 sats 95-98% on RA overnight - Lungs CTAB - Wells score of 1.5 - low likelihood of pulmonary embolism - CTA in ED showed no evidence for PE, patent aortic stent - No signs of CHF exacerbation, pneumonia on imaging - Does not meet SIRS criteria -OK to d/c (3) KIRK (acute kidney injury) ICD Codes: N17.9 - Acute kidney failure, unspecified Status: Acute Plan: Cr on admission 1.18 (estimated GFR 43) - MMM on exam, did not appear volume down - Gave maintenance IVFs (100 mL/hr NS) overnight - Cr 0.93 today (4) CHF (congestive heart failure) ICD Codes: I50.9 - Heart failure, unspecified Status: Chronic Plan: Prior diagnosis of CHF, no signs of exacerbation at this time - Most recent echocardiogram in 2015 showed EF 20-25 % - on Carvedilol 6.25 mg BID, Lasix 20mg qd, Spironolactone 12.5mg qd, Lisinopril 5mg po qd, K 20mEq - BNP on admission 613, this is lower than her last several BNPs in April/March of this year (all over 4000) - BNP today 707 - was on IVF overnight so not concerned. (5) Hypertension ICD Codes: I10 - Essential (primary) hypertension Status: Chronic Plan: Medications as above Was mildly hypotensive on admission (102/67), will hold meds for SBP < 100 or DBP < 60 (6) FEN Status: Acute Plan: Regular diet Maintenance IVF (NS 100mL/hr) Heparin for DVT prophylaxis (Andrea Hicks MD R1) Problem Qualifiers (1) Chest pain: Qualified Codes: R07.9 - Chest pain, unspecified (2) CHF (congestive heart failure): Qualified Codes: I50.9 - Heart failure, unspecified (3) Hypertension: Qualified Codes: I10 - Essential (primary) hypertension Andrea Hicks MD R1 Jul 22, 2017 10:24 Dorcas Martinez MD Jul 22, 2017 14:35
--- NOTE | 2017-07-22 11:36 | EKG ---
Date Performed: 07/21/2017 Time Performed: 22:06:16 PTAGE: 86 years EKG: Sinus rhythm WITH OCCASIONAL SUPRAVENTRICULAR PREMATURE COMPLEXES MARKED LEFT AXIS DEVIATION INCOMPLETE RIGHT BUN DLE BRANCH BLOCK LEFT VENTRICULAR HYPERTROPHY AND ST-T CHANGE POSSIBLE SEPTAL MYOCARDIAL INFARCTION , PROBABLY OLD ABNORMAL ECG PREVIOUS TRACING : 07/21/2017 17.15 No significant change from previous tracing noted. DOCTOR: Quinn Regan Interpretating Date/Time 07/22/2017 11:35:20
--- NOTE | 2017-07-22 11:45 | EKG ---
Date Performed: 07/21/2017 Time Performed: 17:15:48 PTAGE: 86 years EKG: Sinus rhythm WITH FIRST DEGREE AV BLOCK LEFT AXIS DEVIATION POSSIBLE RIGHT VENTRICULAR CONDUCTION DELAY LEFT VENT RICULAR HYPERTROPHY AND ST-T CHANGE POSSIBLE SEPTAL MYOCARDIAL INFARCTION ABNORMAL ECG PREVIOUS TRACING : 07/21/2017 11.11 No significant change from previous tracing noted. DOCTOR: Quinn Regan Interpretating Date/Time 07/22/2017 11:44:14
--- NOTE | 2017-07-22 11:58 | EKG ---
Date Performed: 07/21/2017 Time Performed: 11:11:39 PTAGE: 86 years EKG: Sinus rhythm WITH FIRST DEGREE AV BLOCK LEFT AXIS DEVIATION LEFT VENTRICULAR HYPERTROPHY AND ST-T CHANGE AND QRS WIDENING POSSIBLE SEPTAL MYOCARDIAL INFARCTION ABNORMAL ECG NO PREVIOUS TRACING DOCTOR: Quinn Regan Interpretating Date/Time 07/22/2017 11:57:49
== END 2017-07-22 13:03 ==
LOC: NEPC 10:58 → NEDA 14:00 → N04B 18:27
PROVIDERS: ADMIT Family Medicine; ATTEND Family Medicine
DX: I50.9 Heart failure, unspecified (principal); I11.0 Hypertensive heart disease with heart failure; I25.10 Atherosclerotic heart disease of native coronary artery without angina pectoris; N17.9 Acute kidney failure, unspecified; J44.9 Chronic obstructive pulmonary disease, unspecified; F03.90 Unspecified dementia, unspecified severity, without behavioral disturbance, psychotic disturbance, mood disturbance, and anxiety; Z95.5 Presence of coronary angioplasty implant and graft; Z85.3 Personal history of malignant neoplasm of breast
CPT/HCPCS: 71010; 71275; 80048; 80053; 82550; 83690; 83880; 84484; 85025; 85027; 85610; 85730; 93005; 96360; 96361; 96372; 99291; G0378; J1644; J7030; Q9967; 90686; Q2038

== ENCOUNTER 2017-08-25 22:16 | Emergency (ER) | payer MEDICARE, OTHER ==
[~2017-08-25] VITALS: Ht 162.6 cm; Wt 58.0 kg
[2017-08-25 22:19] VITALS: BP 108/56; PULSE 72; RESP 15; TEMP 97.8; O2SAT 95
[2017-08-25 22:48] VITALS: BP 127/58; PULSE 62; RESP 18; O2SAT 95
--- NOTE | 2017-08-25 23:25 | PD ---
HPI Chief Complaint: Cardiac Complaint Time Seen by Provider: 23:02 Travel History International Travel<30 days: No Contact w/Intl Traveler<30days: No Traveled to known affect area: No History of Present Illness HPI 87-year-old female was brought in for evaluation. Patient apparently was reported to have bradycardia with a heart rate in the 30s and 40s earlier today. Patient has no complaint. Patient denies any headache. Patient denies any chest pain or shortness of breath. Patient denies abdominal pain. Patient denies any focal weakness or numbness of extremity. Patient has history of CHF with reduced ejection fraction. Patient's ejection fraction around 20-25% recently. Patient also has history of nonischemic cardiomyopathy, aortic insufficiency, mitral regurgitation, hypertension, thoracic aortic aneurysm, chronic kidney disease, COPD. PFSH Past Medical History Hx Anticoagulant Therapy: No Arthritis: No Asthma: No Blood Disorders: No Anxiety: Yes Depression: No Heart Rhythm Problems: No Cancer: Yes (breast) Cardiovascular Problems: Yes (CHF) High Cholesterol: Yes Chemotherapy: No (CURRENTLY NONE) Chest Pain: No Congestive Heart Failure: Yes COPD: Yes Coronary Artery Disease: Yes Diabetes: No Diminished Hearing: No Endocrine: No Gastrointestinal Disorders: No Genitourinary: No Hypertension: Yes Immune Disorder: No Implanted Vascular Access Dvce: No Musculoskeletal: Yes (Fibromyalga) Neurologic: No Psychiatric: No Reproductive: No Respiratory: Yes (COPD) Integumentary: Yes (hx shigles) Immunizations Current: Yes Radiation Therapy: Yes (not currently) Sleep Apnea: No Thyroid Disease: No Tetanus Vaccination: Unknown Influenza Vaccination: Yes Menopausal: Yes Past Surgical History Abdominal Surgery: No Appendectomy: Yes Cardiac Surgery: Yes (aortic anuerism) Coronary Stent: Yes Ear Surgery: No Endocrine Surgery: No Eye Surgery: Yes Genitourinary Surgery: No Gynecologic Surgery: Yes (right lump ectomy ) Hysterectomy: Yes Oral Surgery: No Thoracic Surgery: No Tonsillectomy: Yes Other Surgery: Yes (right lumpectomy, APPENDECTOMY) Social History Alcohol Use: Yes (Occ.) Tobacco Use: No Substance Use: No Allergies-Medications (Allergen,Severity, Reaction): Coded Allergies: Sulfa (Sulfonamide Antibiotics) (Unverified Allergy, Unknown, LIGHTHEADED , 08/25/17) Reported Meds & Prescriptions Reported Meds & Active Scripts Active Furosemide 20 Mg Tab 20 Mg PO DAILY Coreg (Carvedilol) 6.25 Mg Tab 6.25 Mg PO Q12HR Reported Spironolactone 25 Mg Tab 12.5 Mg PO DAILY Isosorbide Mononitrate 10 Mg Tab 30 Mg PO HS Take 2 doses 7 hours apart. Breo Ellipta Inh (Fluticasone/Vilanterol) 100-25 Mcg/Act Inh 1 Puff INH DAILY Use daily at the same time. Lisinopril 5 Mg Tab 5 Mg PO DAILY Potassium Chloride ER (Potassium Chloride) 20 Meq Tab 20 Meq PO DAILY Fluticasone Nasal [employer] 50 Mcg/Act Naspr 50 Mcg EACH NARE BID 50 mcg/spray Review of Systems General / Constitutional: No: Fever Eyes: No: Visual changes HENT: No: Headaches Cardiovascular: No: Chest Pain or Discomfort Respiratory: No: Shortness of Breath Gastrointestinal: No: Abdominal Pain Genitourinary: No: Dysuria Musculoskeletal: No: Pain Skin: No Rash Neurologic: No: Weakness Psychiatric: No: Depression Endocrine: No: Polydipsia Hematologic/Lymphatic: No: Easy Bruising Physical Exam Narrative GENERAL: Well-nourished, well-developed patient. SKIN: Focused skin assessment warm/dry. HEAD: Normocephalic. EYES: No scleral icterus. No injection or drainage. NECK: Supple, trachea midline. No JVD or lymphadenopathy. CARDIOVASCULAR: Regular rate and rhythm without murmurs, gallops, or rubs. RESPIRATORY: Breath sounds equal bilaterally. No accessory muscle use. GASTROINTESTINAL: Abdomen soft, non-tender, nondistended. MUSCULOSKELETAL: No cyanosis, or edema. BACK: Nontender without obvious deformity. No CVA tenderness. Neurologic exam: Patient's awake alert oriented 3. No obvious focal neurological deficit. Data Data Last Documented VS Vital Signs Date Time Temp Pulse Resp B/P (MAP) Pulse Ox O2 Delivery O2 Flow Rate FiO2 08/26/17 00:17 58 18 112/58 (76) 95 Room Air 08/25/17 22:19 97.8 Orders Orders Electrocardiogram (08/25/17 23:19) Complete Blood Count With Diff (08/25/17 23:19) Basic Metabolic Panel (Bmp) (08/25/17 23:19) B-Type Natriuretic Peptide (08/25/17 23:19) Prothrombin Time / Inr (Pt) (08/25/17 23:19) Act Partial Throm Time (Ptt) (08/25/17 23:19) Thyroid Stimulating Hormone (08/25/17 23:19) Iv Access Insert/Monitor (08/25/17 23:19) Ecg Monitoring (08/25/17 23:19) Oximetry (08/25/17 23:19) Ed Discharge Order (08/26/17 00:48) Labs Laboratory Tests Test 08/26/17 00:30 [facility] Medical Decision Making Medical Screen Exam Complete: Yes Emergency Medical Condition: Yes Differential Diagnosis Differential diagnosis including bradycardia, sick sinus syndrome, heart block. Narrative Course 87-year-old female was brought in immediately for evaluation of bradycardia. Patient has a pulse in the 50s in the ED. 12:49 AM. Patient decided to go home. Patient does not wait for blood test results. Diagnosis Primary Impression: Bradycardia Patient Instructions: General Instructions Additional Instructions: Advised patient to continue with all medication. Patient advised to hold off on carvedilol. Persistent bradycardia. Follow-up with preform plate maker. Return as needed. Med/Other Pt SpecificInfo: No Change to Meds Disposition: 01 DISCHARGE HOME Condition: Stable Enoch Go MD Aug 25, 2017 23:25
[2017-08-26 00:17] VITALS: BP 112/58; PULSE 58; RESP 18; O2SAT 95
[2017-08-26 00:51] LABS: AUTOMATED NEUTROPHIL # 3.1 TH/MM3 (1.8-7.7); BASOPHIL # 0.1 TH/MM3 (0-0.2); BASOPHIL % 2.1 % (0.0-2.0); EOSINOPHIL # 0.2 TH/MM3 (0-0.4); EOSINOPHIL % 3.1 % (0.0-4.0); HEMATOCRIT 37.8 % (35.0-46.0); LYMPH % 20.7 % (9.0-44.0); MEAN CORPUSCULAR HGB CONC 32.9 % (32.0-36.0); MONO % 9.9 % (0.0-8.0); NEUT % 64.2 % (16.0-70.0); PLATELET COUNT 98 TH/MM3 (150-450); RED BLOOD COUNT 3.89 MIL/MM3 (4.00-5.30); RED CELL DISTRIBUTION WIDTH 13.8 % (11.6-17.2); WHITE BLOOD COUNT 4.9 TH/MM3 (4.0-11.0)
[2017-08-26 01:10] LABS: HEMO FLAGS AUTO DIFF
[2017-08-26 01:11] LABS: APTT (PATIENT) 28.2 SEC (24.3-30.1); PROTHROMBIN TIME - PATIENT 11.4 SEC (9.8-11.6)
[2017-08-26 01:34] LABS: BICARBONATE 25.5 MEQ/L (21.0-32.0); POTASSIUM 4.8 MEQ/L (3.5-5.1)
[2017-08-26 02:00] LABS: OVALOCYTES 1+ (NORMAL); PLATELET ESTIMATE SMEAR LOW (NORMAL); PLATELET MORPHOLOGY NORMAL (NORMAL); SCAN/DIFF AUTO DIFF CONFIRMED
--- NOTE | 2017-08-26 09:13 | EKG ---
Date Performed: 08/25/2017 Time Performed: 22:46:13 PTAGE: 87 years EKG: SINUS BRADYCARDIA WITH FIRST DEGREE AV BLOCK WITH OCCASIONAL SUPRAVENTRICULAR PREMATURE COM PLEXES LEFT AXIS DEVIATION INCOMPLETE RIGHT BUNDLE BRANCH BLOCK VOLTAGE CRITERIA FOR LVH ABNORMAL ECG NO PREVIOUS TRACING DOCTOR: Quinn Regan Interpretating Date/Time 08/26/2017 09:11:54
== END 2017-08-26 01:40 | disposition home or self-care (01) ==
LOC: NEPC 22:16
DX: R00.1 Bradycardia, unspecified (principal); F41.9 Anxiety disorder, unspecified; I25.10 Atherosclerotic heart disease of native coronary artery without angina pectoris; J44.9 Chronic obstructive pulmonary disease, unspecified; E78.5 Hyperlipidemia, unspecified; I11.0 Hypertensive heart disease with heart failure; I50.9 Heart failure, unspecified; Z79.899 Other long term (current) drug therapy
CPT/HCPCS: 80048; 83880; 84443; 85025; 85610; 85730; 93005

== ENCOUNTER 2018-02-09 02:43 | Emergency (ER) | payer MEDICARE, OTHER ==
[~2018-02-09] VITALS: Ht 162.6 cm; Wt 56.5 kg
[2018-02-09 02:47] VITALS: BP 98/63; PULSE 77; RESP 14; TEMP 98; O2SAT 98
--- NOTE | 2018-02-09 03:07 | PD ---
HPI Chief Complaint: Laceration/Skin Injury Time Seen by Provider: 02:57 Travel History International Travel<30 days: No Contact w/Intl Traveler<30days: No Traveled to known affect area: No History of Present Illness HPI The patient is an 87-year-old female that fell out of bed this morning. She is at [facility]. There were no bedrails on her bed. She lacerated thin skin lacerations of both lower legs. She denies any other injury and denies any pain other than a slight burning sensation on her left lower leg. She describes her pain as a 0/10. She does not know when her last tetanus shot was. PFSH Past Medical History Hx Anticoagulant Therapy: No Arthritis: No Asthma: No Blood Disorders: No Anxiety: Yes Depression: No Heart Rhythm Problems: No Cancer: Yes (breast) Cardiovascular Problems: Yes (CHF) High Cholesterol: Yes Chemotherapy: No (CURRENTLY NONE) Chest Pain: No Congestive Heart Failure: Yes COPD: Yes Coronary Artery Disease: Yes Diabetes: No Diminished Hearing: No Endocrine: No Gastrointestinal Disorders: No Genitourinary: No Hypertension: Yes Immune Disorder: No Implanted Vascular Access Dvce: No Musculoskeletal: Yes (Fibromyalga) Neurologic: No Psychiatric: No Reproductive: No Respiratory: Yes (COPD) Integumentary: Yes (hx shigles) Immunizations Current: Yes Radiation Therapy: Yes (not currently) Sleep Apnea: No Thyroid Disease: No ?: Not Menopausal: Yes Past Surgical History Abdominal Surgery: No Appendectomy: Yes Cardiac Surgery: Yes (aortic anuerism) Coronary Stent: Yes Ear Surgery: No Endocrine Surgery: No Eye Surgery: Yes Genitourinary Surgery: No Gynecologic Surgery: Yes (right lump ectomy ) Hysterectomy: Yes Oral Surgery: No Thoracic Surgery: No Tonsillectomy: Yes Other Surgery: Yes (right lumpectomy, APPENDECTOMY) Social History Alcohol Use: Yes (Occ.) Tobacco Use: No Substance Use: No Allergies-Medications (Allergen,Severity, Reaction): Coded Allergies: Sulfa (Sulfonamide Antibiotics) (Unverified Allergy, Unknown, LIGHTHEADED , 08/25/17) Reported Meds & Prescriptions Reported Meds & Active Scripts Active Furosemide 20 Mg Tab 20 Mg PO DAILY Coreg (Carvedilol) 6.25 Mg Tab 6.25 Mg PO Q12HR Reported Spironolactone 25 Mg Tab 12.5 Mg PO DAILY Isosorbide Mononitrate 10 Mg Tab 30 Mg PO HS Take 2 doses 7 hours apart. Breo Ellipta Inh (Fluticasone/Vilanterol) 100-25 Mcg/Act Inh 1 Puff INH DAILY Use daily at the same time. Lisinopril 5 Mg Tab 5 Mg PO DAILY Potassium Chloride ER (Potassium Chloride) 20 Meq Tab 20 Meq PO DAILY Fluticasone Nasal [place] 50 Mcg/Act Naspr 50 Mcg EACH NARE BID 50 mcg/spray Review of Systems Except as stated in HPI: all other systems reviewed are Neg Physical Exam Narrative GENERAL: The patient is alert, oriented 3 in no apparent distress other than her left lower leg discomfort. SKIN: Focused skin assessment warm/dry. There are thin skin lacerations, the right leg shows a 7 cm flap type laceration the left leg shows a 20 cm thin skin laceration flap. HEAD: Atraumatic. Normocephalic. EYES: Pupils equal and round. No scleral icterus. No injection or drainage. ENT: No nasal bleeding or discharge. Mucous membranes pink and moist. NECK: Trachea midline. No JVD. CARDIOVASCULAR: Regular rate and rhythm. No murmur appreciated. RESPIRATORY: No accessory muscle use. Clear to auscultation. Breath sounds equal bilaterally. GASTROINTESTINAL: Abdomen soft, non-tender, nondistended. Hepatic and splenic margins not palpable. MUSCULOSKELETAL: No obvious deformities. No clubbing. No cyanosis. No edema. NEUROLOGICAL: Awake and alert. No obvious cranial nerve deficits. Motor grossly within normal limits. Normal speech. PSYCHIATRIC: Appropriate mood and affect; insight and judgment normal. Data Data Last Documented VS Vital Signs Date Time Temp Pulse Resp B/P (MAP) Pulse Ox O2 Delivery O2 Flow Rate FiO2 02/09/18 02:47 98.0 77 14 98/63 (75) 98 MDM Medical Decision Making Medical Screen Exam Complete: Yes Emergency Medical Condition: Yes Medical Record Reviewed: Yes Differential Diagnosis skin laceration with deep tissue involvement, thin skin laceration without deep tissue involvement Narrative Course The patient has thin skin lacerations with out deep tissue involvement. The lacerations will be Steri-Stripped and antibiotic ointment applied along with Telfa and absorbent gauze and wrapping an Eric bandage. Diagnosis Primary Impression: Laceration of leg, left Additional Impression: Laceration of right lower leg Additional Instructions: Change the bandage once daily and let Dr. Dos Santos look at it. If necessary, she can be referred to the wound clinic. Consider bedrails on her bed. Med/Other Pt SpecificInfo: No Change to Meds Disposition: 01 DISCHARGE HOME Condition: Manjeet Donovan MD Feb 09, 2018 03:07
[2018-02-09] MEDS ORDERED: TETANUS/DIPHTHERIA TOXOID ADULT 0.5 ML VIAL IM ONE (03:15)
[2018-02-09] MEDS ORDERED: NON-325T6 PO (03:28)
[2018-02-09] MEDS ORDERED: ISOS30TA3 PO (03:28)
[2018-02-09 04:02] VITALS: BP 141/86; PULSE 86; RESP 14; O2SAT 98
[2018-02-09 06:00] VITALS: BP 163/73; PULSE 68; RESP 16; O2SAT 98
== END 2018-02-09 08:22 | disposition home or self-care (01) ==
LOC: PHED 02:43
DX: S81.812A Laceration without foreign body, left lower leg, initial encounter (principal); S81.811A Laceration without foreign body, right lower leg, initial encounter; I11.0 Hypertensive heart disease with heart failure; I50.9 Heart failure, unspecified; W06.XXXA Fall from bed, initial encounter; Y92.099 Unspecified place in other non-institutional residence as the place of occurrence of the external cause; Z23 Encounter for immunization
CPT/HCPCS: 90471; 90714

== ENCOUNTER 2018-02-17 21:57 | Emergency (ER) | payer MEDICARE, OTHER ==
[~2018-02-17] VITALS: Ht 162.6 cm; Wt 54.5 kg
[~2018-02-17 21:57] MED LIST changes: -CARV6.25 PO; -ISOS10TA3 PO; +ISOS30TA3 PO; +NON-325T6 PO
[2018-02-17 22:04] VITALS: BP 125/74; PULSE 87; RESP 16; TEMP 97.8; O2SAT 95
--- NOTE | 2018-02-17 22:10 | PD ---
HPI Chief Complaint: Wound check Time Seen by Provider: 22:01 Travel History International Travel<30 days: No Contact w/Intl Traveler<30days: No Traveled to known affect area: No History of Present Illness HPI The patient is a 87-year-old female who presents to the emergency department via [facility] for evaluation of the left lower extremity wound. The patient states that she scraped the anterior aspect of her left lower extremity several days ago. The patient had a dressing applied and was going to see academic program specialist earlier today. However, she did not feel well administer appointment to see the academic program specialist. The patient states that she obtained an abrasion after falling several days ago, had a large skin tear to the anterior aspect the left lower extremity. She is able to bear weight on the affected leg. She denies any numbness or tingling of the left lower extremity and thinks her tetanus shot is up-to-date within the last 5 years. Symptoms are mild to moderate. There are no current alleviating or exacerbating factors. PFSH Past Medical History Hx Anticoagulant Therapy: No Arthritis: No Asthma: No Blood Disorders: No Anxiety: Yes Depression: No Heart Rhythm Problems: No Cancer: Yes (breast) Cardiovascular Problems: Yes (CHF) High Cholesterol: Yes Chest Pain: No Congestive Heart Failure: Yes COPD: Yes Coronary Artery Disease: Yes Diabetes: No Diminished Hearing: No Endocrine: No Gastrointestinal Disorders: No Genitourinary: No Hypertension: Yes Immune Disorder: No Implanted Vascular Access Dvce: No Musculoskeletal: Yes (Fibromyalga) Neurologic: No Psychiatric: No Reproductive: No Respiratory: Yes (COPD) Integumentary: Yes (hx shigles) Immunizations Current: Yes Radiation Therapy: Yes (not currently) Sleep Apnea: No Thyroid Disease: No Menopausal: Yes Past Surgical History Abdominal Surgery: No Appendectomy: Yes Cardiac Surgery: Yes (aortic anuerism) Coronary Stent: Yes Ear Surgery: No Endocrine Surgery: No Eye Surgery: Yes Genitourinary Surgery: No Gynecologic Surgery: Yes (right lump ectomy ) Hysterectomy: Yes Oral Surgery: No Thoracic Surgery: No Tonsillectomy: Yes Other Surgery: Yes (right lumpectomy, APPENDECTOMY) Social History Alcohol Use: Yes (Occ.) Tobacco Use: No Substance Use: No Allergies-Medications (Allergen,Severity, Reaction): Coded Allergies: Sulfa (Sulfonamide Antibiotics) (Unverified Allergy, Unknown, LIGHTHEADED , 08/25/17) Reported Meds & Prescriptions Reported Meds & Active Scripts Active Furosemide 20 Mg Tab 20 Mg PO DAILY Reported Non-Aspirin Pain Relief (Acetaminophen) 325 Mg Tab 650 Mg PO DAILY Isosorbide Mononitrate ER (Isosorbide Mononitrate) 30 Mg [place] 30 Mg PO DAILY Spironolactone 25 Mg Tab 12.5 Mg PO DAILY Breo Ellipta Inh (Fluticasone/Vilanterol) 100-25 Mcg/Act Inh 1 Puff INH DAILY Use daily at the same time. Lisinopril 5 Mg Tab 5 Mg PO DAILY Potassium Chloride ER (Potassium Chloride) 20 Meq Tab 20 Meq PO DAILY Fluticasone Nasal [place] 50 Mcg/Act Naspr 50 Mcg EACH NARE BID 50 mcg/spray Review of Systems Except as stated in HPI: all other systems reviewed are Neg Musculoskeletal: No: Pain Skin: Positive Other (As noted in the history of present) Neurologic: No: Paresthesia, Sensory Disturbance Physical Exam Narrative GENERAL: Awake, alert, very pleasant 87-year-old female who appears her stated age and is in no acute respiratory distress. SKIN: Focused skin assessment warm/dry. HEAD: Atraumatic. Normocephalic. EYES: No injection or drainage MUSCULOSKELETAL: Chronic venous stasis changes lower extremities bilateral. Positive dorsalis pedal pulse. Patient is able bear weight on both legs is able flex the knees and the ankles bilaterally. The patient has a large old appearing skin tear to the anterior aspect of the left mid leg. There is no acute bleeding. No large hematoma palpated. No drainage noted. Mild tenderness of the affected area. NEUROLOGICAL: Awake and alert. No obvious cranial nerve deficits. Motor grossly within normal limits. Normal speech. PSYCHIATRIC: Appropriate mood and affect; insight and judgment normal. Data Data Orders Orders Acetaminophen (Tylenol) (02/17/18 22:15) Wound Care (02/17/18 22:02) MDM Medical Decision Making Medical Screen Exam Complete: Yes Emergency Medical Condition: Yes Medical Record Reviewed: Yes Differential Diagnosis Differential diagnosis includes skin tear, abrasion, laceration, contusion, hematoma, infected wound, fracture. Narrative Course The patient's wound happened several days ago. She is able to bear weight and stand on the left leg. The patient did have a dressing applied of the affected area and has no evidence of secondary infection. The patient thinks her tetanus shot is up-to-date, therefore, no tetanus shot was administered. The wound was cleaned and then a new dressing was applied. The patient is advised to follow-up with her primary physician. Return if symptoms worsen or progress. Diagnosis Primary Impression: Visit for wound check Additional Impression: Noninfected skin tear of left leg Qualified Codes: S81.812A - Laceration without foreign body, left lower leg, initial encounter Additional Instructions: Wound care instructions. Keep the area clean and dry. Monitor for signs of infection. Follow-up with your primary physician. Return if symptoms worsen or progress. Med/Other Pt SpecificInfo: No Change to Meds Disposition: 01 DISCHARGE HOME Condition: Stable Ger Sparks MD Feb 17, 2018 22:09
[2018-02-17] MEDS ORDERED: ACETAMINOPHEN 325 MG TAB PO ONE (22:15)
== END 2018-02-17 22:59 | disposition home or self-care (01) ==
LOC: PHED 21:57
DX: S81.812D Laceration without foreign body, left lower leg, subsequent encounter (principal); F41.9 Anxiety disorder, unspecified; I11.0 Hypertensive heart disease with heart failure; I50.9 Heart failure, unspecified; J44.9 Chronic obstructive pulmonary disease, unspecified; E78.00 Pure hypercholesterolemia, unspecified; I25.10 Atherosclerotic heart disease of native coronary artery without angina pectoris; Z79.899 Other long term (current) drug therapy; X58.XXXD Exposure to other specified factors, subsequent encounter
CPT/HCPCS: 99281